=== PATIENT | female | born 2000 | race Caucasian/White ===

== ENCOUNTER → 2022-09-09 16:28 | Outpatient (CLI) | payer OTHER, SELFPAY ==
--- NOTE | 2022-09-09 | DI.MRI.S_ITS ---
PROCEDURE: MR KNEE RT WO CON INDICATIONS: PAIN IN RIGHT KNEE TECHNIQUE: Noncontrast sagittal PD fast spin echo and T2 fast spin echo with fat saturation, sagittal 3-D FLASH with fat saturation; coronal T1 spin echo and PD fast spin echo with fat saturation, and axial PD fast spin echo with fat saturation through the knee. COMPARISON: None. FINDINGS: Image quality: Excellent. Menisci: The medial and lateral menisci demonstrate normal morphology and internal signal. The meniscal root ligaments appear intact. Cruciate ligaments: The anterior and posterior cruciate ligaments appear intact. Medial structures: The medial collateral ligament appears intact. Visualized portions of the pes anserinus tendons appear normal. No abnormal bursal fluid. Lateral structures: The lateral collateral ligament, long and short heads of the biceps femoris tendon appear intact. The popliteus tendon appears normal. Iliotibial band appears normal. Anterior structures: The quadriceps and patellar tendons appear intact. Patellar alignment is normal. No femoral trochlear dysplasia or ventral trochlear prominence. No edema in the infrapatellar fat pad. Bones and cartilage: No bone marrow contusions or fractures. Articular cartilage fibrillation overlies the lateral patellar facet. Mild articular cartilage loss diffusely overlies the weight-bearing aspects of the medial femoral condyle and medial tibial plateau. Joint space: There is physiologic knee joint fluid. No Edwards's cyst. Normal appearing synovial plicae are incidentally noted. IMPRESSION: 1. No internal derangement. 2. Mild lateral patellofemoral compartment articular cartilage loss. Dictated by: Yue Mata M.D. on 09/10/2022 at 9:46 Approved by: Yue Mata M.D. on 09/10/2022 at 9:52
== END ==
PROVIDERS: Referring Provider Student in an Organized Health Care Education/Training Program; Visit Provider Student in an Organized Health Care Education/Training Program
DX: M25.561 Pain in right knee (principal); F90.9 Attention-deficit hyperactivity disorder, unspecified type
CPT/HCPCS: 73721

== ENCOUNTER → 2022-10-16 14:39 | Outpatient (CLI) | payer OTHER, SELFPAY ==
[2022-10-16 15:35] LABS: Add Manual Diff / Slide Review NO; Basophils Absolute Auto 100 /uL (0-100); Basophils Percent Auto 0.6 % (0-2); Eosinophils Absolute Auto 100 /uL (0-450); Eosinophils Percent Auto 0.7 % (2-4); Hematocrit 34.1 % (36-46); Hemoglobin 11.9 g/dL (12.0-16.0); Lymphocytes Absolute Auto 2300 /uL (1100-4500); Lymphocytes Percent Auto 27.2 % (25-40); Mean Corpuscular HGB Conc 34.8 % (30-36); Mean Corpuscular Hemoglobin 26.6 PG (26-34); Mean Corpuscular Volume 76.4 fL (80-100); Monocytes Absolute Auto 600 /uL (0-900); Monocytes Percent Auto 7.2 % (3-14); Neutrophils Absolute Auto 5300 /uL (1500-7000); Neutrophils Percent Auto 64.3 % (50-75); Platelet Count 262 X10^3/uL (150-400); Red Blood Cell Count 4.47 X10^6/uL (4.0-5.2); White Blood Cell Count 8.3 X10^3/uL (4.5-11.0)
[2022-10-16 16:09] LABS: Free T3, Triiodothyronine Free 4.35 pg/mL (2.77-5.27); Free T4, Direct Thyroxine 1.06 ng/dL (0.78-2.19)
[2022-10-16 16:23] LABS: Thyroid Stimulating Hormone 1.96 uIU/mL (0.47-4.68)
[2022-10-17 07:03] LABS: RPR Screen Non Reactive (Non Reactive); x Labcorp Estim. Avg Glu (eAG) 94 mg/dL (.); x Labcorp Hemoglobin A1c 4.9 % (4.8-5.6)
[2022-10-17 08:09] LABS: Varicella IgG Antibody 1527 index (Immune >165)
[2022-10-19 14:06] LABS: Hepatitis B Surface Antigen NEGATIVE s/c (NEGATIVE); Rubella Antibody IgG 26.2 IU/mL (>15)
[2022-10-19 14:15] LABS: HIV 1 & 2 Ab/Ag 4th Gen Combo NEGATIVE (NEGATIVE)
[2022-10-19 15:01] LABS: Hep C Virus Ab w/Reflex Quant NEGATIVE s/c (NEGATIVE)
== END ==
PROVIDERS: Referring Provider Specialist; Visit Provider Specialist
DX: Z34.00 Encounter for supervision of normal first pregnancy, unspecified trimester (principal); R63.5 Abnormal weight gain
CPT/HCPCS: 36415; 80055; 83036; 84439; 84443; 84481; 86787; 86803; 86850; 86900; 86901; 87389

== ENCOUNTER 2022-11-04 08:59 | Emergency (ER) | payer OTHER, SELFPAY ==
[2022-11-04 09:08] VITALS: BP 124/84; PULSE 88; RESP 14; TEMP 35.9; O2SAT 99; BMI 41.1
--- NOTE | 2022-11-04 09:22 | DI.US.S_ITS ---
PROCEDURE: US OB <= 14 WEEKS FETUS INDICATIONS: PAIN OUTSIDE/PRIOR DATING DATA: Last menstrual period (LMP): 08/15/2022. LMP-based estimated date of delivery (BRIANNE): 05/22/2023. First dating scan (date and location): 10/16/2022. Estimated date of delivery (BRIANNE) from first dating scan: 06/01/23. The calculations are made using the ultrasound BRIANNE of 06/01/2023. TECHNIQUE: Real-time scanning was performed of the fetus and maternal pelvic organs, with image documentation. Endovaginal scanning was also performed to better visualize the fetus and maternal ovaries. COMPARISON: [facility], US, US OB <= 14 WEEKS FETUS, 10/16/2022, 14:14. FINDINGS: Embryo: [place]-rump length measures 3.3 cm, 10 weeks 1 day. A yolk sac is noted. Heart rate: 171 Maternal organs: Ovaries not well seen. Small perigestational bleed measuring 1.8 x 0.4 x 0.3 cm. IMPRESSION: 1. Living 1st trimester intrauterine with crown-rump length and heartbeat. 2. Very small perigestational bleed. We strive to produce accurate, complete, and clear reports of imaging services. To assist us in improving patient care, this report was composed using standard report templates and voice recognition software. Therefore, it may contain abnormal punctuation, insertions and/or omissions. Occasional wrong-word or sound-alike substitutions may occur. Though we review the report and make efforts to correct it, we do recommend that the report be read carefully in proper context to recognize any text inaccuracies. Dictated by: Chevy Mike M.D. on 11/04/2022 at 10:25 Approved by: Chevy Mike M.D. on 11/04/2022 at 10:29
--- NOTE | 2022-11-04 09:26 | ED_ITS ---
HPI - Abdominal Pain General Chief Complaint: Abdominal Pain Stated Complaint: Vomiting blood, stomach pain Time Seen by Provider: 11/04/22 09:13 Source: patient Mode of arrival: Ambulatory History of Present Illness HPI narrative: Patient 22-year-old female presenting today with nausea vomiting and abdominal pain. He reports that she is been nauseous and vomiting daily she is got Zofran at 5 it does not really help. She can sometimes keep prove found but definitely can not keep him male down. She vomited today and there was a small amount of blood in her vomit. She felt pain go all the way down to her abdomen and is now having some mild discomfort in her lower pelvic region. No fever or chills. Related Data Home Medications Medication Instructions Recorded Confirmed vitamin-ferrous sulfate tab PO 10/12/22 10/16/22 27 mg iron-folic acid 0.8 mg tablet Previous Rx's Medication Instructions Recorded ondansetron 4 mg disintegrating 4 mg PO Q6H PRN nausea and 10/27/22 tablet vomiting #20 tabs metoclopramide HCl 10 mg tablet 10 mg PO Q6H PRN nausea and 11/04/22 (Reglan) vomiting #20 tabs Allergies Allergy/AdvReac Type Severity Reaction Status Date / Time oxybutynin Allergy Mild Rash Verified 11/04/22 09:08 Review of Systems Review of Systems ROS Unobtainable: All systems reviewed & are unremarkable except as noted in HPI and below Patient History Medical History ADHD Migraine without aura Recurrent UTI Surgical History [place] teeth extracted Family History Grandfather Heart disease Hypertension Liver failure Grandmother Cancer Heart disease Hypertension Obesity Grandfather Melanoma Grandmother No problems noted. 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 [employer] ) current occupational exposures/hazards: No special dot needs: No travel history: recent (domestic only) seatbelt use: always water heater temp set < 120 deg: Yes working smoke detector in home: Yes fire extinguisher in home: Yes carbon monox detector in home: Yes firearms in home: No do you feel safe at home: Yes Smoking Status: Never smoker second hand exposure: No alcohol intake: former (rarely when not ) substance use type: does not use during the past year weight has: increased > 10 lbs well-balanced diet: daily or most days daily servings fruits/ve or more times/day caffeine: No Type(s) of exercise: walking and weight lifting frequency: 3-4 times per week Smoking Status: Never smoker alcohol intake frequency: holidays/special occasions only Substance Use Type: does not use Exam Initial Vital Signs Initial Vital Signs: Vital Signs Temperature 96.7 F L 11/04/22 09:08 Pulse Rate 88 11/04/22 09:08 Respiratory Rate 14 11/04/22 09:08 Blood Pressure 124/84 11/04/22 09:08 Pulse Oximetry 99 11/04/22 09:08 Oxygen Delivery Method Room Air 11/04/22 09:08 GENERAL: Alert pleasant well 22-year-old female and in no acute distress. Appears comfortable HEENT: Head atraumatic,EOMI, pupils reactive, face symmetric, moist mucous membranes CARDIOVASCULAR: Regular rate and rhythm without murmurs, rubs or gallops. RESPIRATORY: Breath sounds equal bilaterally, no wheezes rales or rhonchi. ABDOMEN: Soft, minimal lower abdominal pain no guarding no rebound : No CVA tenderness EXTREMITIES: Normal range of motion, no clubbing or edema. Neurovascularly intact NEUROLOGICAL: Alert and oriented x4. SKIN: Warm, dry, no laceration, no petechiae, no rashes or lesions. Course Orders Ordered: Discontinued Medications Sodium Chloride (Normal Saline 0.9%) 1,000 mls @ 1,000 mls/hr IV BOLUS ONE Stop: 11/04/22 10:12 Last Infusion: 11/04/22 11:35 Dose: 0 mls/hr Documented By: Admin: 11/04/22 10:06 Dose: 1,000 mls/hr Documented By: ROLANDO Metoclopramide HCl (Metoclopramide 10 Mg/2 Ml Inj) 10 mg IV NOW ONE Stop: 11/04/22 10:34 Last Admin: 11/04/22 10:43 Dose: 10 mg Documented By: ROLANDO Vital Signs Vital signs: Vital Signs - 8 hr 11/04/22 09:08 Temperature 96.7 F L Pulse Rate 88 Respiratory Rate 14 Blood Pressure 124/84 Pulse Oximetry 99 Oxygen Delivery Method Room Air MDM - Abdominal Pain Lab Data 11/04/22 09:30 11/04/22 09:30 Labs: Lab Results 11/04/22 11/04/22 Range/Units 09:30 09:30 WBC 8.3 (4.5-11.0) X10^3/uL RBC 4.89 (4.0-5.2) X10^6/uL Hgb 12.8 (12.0-16.0) g/dL Hct 36.7 (36-46) % MCV 75.0 L (80-100) fL MCH 26.2 (26-34) PG MCHC 34.9 (30-36) % RDW 13.5 (11.6-14.8) % Plt Count 255 (150-400) X10^3/uL Neut % (Auto) 65.5 (50-75) % Lymph % (Auto) 27.0 (25-40) % [place] % (Auto) 6.7 (3-14) % Eos % (Auto) 0.4 L (2-4) % Baso % (Auto) 0.4 (0-2) % Neut # (Auto) 5400 (7728-1244) /uL Lymph # (Auto) 2200 (9140-2501) /uL [place] # (Auto) 600 (0-900) /uL Eos # (Auto) 0 (0-450) /uL Baso # (Auto) 0 (0-100) /uL Sodium 135 L (137-145) mmol/L Potassium 3.9 (3.4-5.1) mmol/L Chloride 101 (98-107) mmol/L Carbon Dioxide 27 (22-32) mmol/L BUN 4 L (7-17) mg/dL Creatinine 0.51 L (0.52-1.04) mg/dL Estimated GFR > 60 (>60) mL/min BUN/Creatinine Ratio 7.8 (6-22) Glucose 93 (70-100) mg/dL Calcium 9.2 (8.4-10.2) mg/dL Total Bilirubin 0.3 (0.2-1.3) mg/dL AST 22 (14-36) IU/L ALT 23 (<35) IU/L Alkaline Phosphatase 67 (38-126) U/L Total Protein 7.0 (6.3-8.2) g/dL Albumin 4.0 (3.5-5.0) g/dL Globulin 3.0 (1.7-4.1) g/dL Albumin/Globulin Ratio 1.3 (1.0-2.8) Point of care testing: Point of Care Testing Test Results Negative Urine Dip Bedside Urine Glucose Negative Bedside Urine Bilirubin - Negative Bedside Urine Ketone - Negative Urine Specific [place] 1.005 Bedside Urine Occult Blood - Negative Bedside Urine pH 7.0 Bedside Urine Protein - Negative Bedside Urine Urobilinogen - Negative Bedside Urine Nitrite - Negative Bedside Urine Leukocytes - Negative Esterase Imaging Data US - OB: Radiologist's Impression: PROCEDURE:? US OB <= 14 WEEKS FETUS ? INDICATIONS:? PAIN ? OUTSIDE/PRIOR DATING DATA:? Last menstrual period (LMP):? 08/15/2022.? LMP-based estimated date of delivery (BRIANNE):? 05/22/2023.? First dating scan (date and location):? 10/16/2022.? Estimated date of delivery (BRIANNE) from first dating scan:? 06/01/23. The calculations are made using the ultrasound BRIANNE of 06/01/2023. ? TECHNIQUE:? Real-time scanning was performed of the fetus and maternal pelvic organs, with image documentation.? Endovaginal scanning was also performed to better visualize the fetus and maternal ovaries.? ? COMPARISON:? [facility], , US OB <= 14 WEEKS FETUS, 10/16/2022, 14:14. ? FINDINGS:? ? Embryo:? [place]-rump length measures 3.3 cm, 10 weeks 1 day.? A yolk sac is noted. Heart rate:? 171 ? Maternal organs:? Ovaries not well seen. ? Small perigestational bleed measuring 1.8 x 0.4 x 0.3 cm. ? ? IMPRESSION:? ? 1. Living 1st trimester intrauterine with crown-rump length and heartbeat. ? 2. Very small perigestational bleed.? ? We strive to produce accurate, complete, and clear reports of imaging services. To assist us in improving patient care, this report was composed using standard report templates and voice recognition software. Therefore, it may contain abnormal punctuation, insertions and/or omissions. Occasional wrong-word or sound-alike substitutions may occur. Though we review the report and make efforts to correct it, we do recommend that the report be read carefully in proper context to recognize any text inaccuracies. ? ? Dictated by: Chevy Mike M.D. on 11/04/2022 at 10:25 MDM Narrative Medical decision making narrative: Patient 22-year-old female currently 10 weeks confirmed by ultr asound today presents today with vomiting. She did have hematemesis. No concern for Debbie-Rivas or for his syndrome. She was having some lower abdominal cramping but minimal pain ultrasound is reassuring. She is tolerating fluids blood work does not show any significant clinical abnormality no evidence of a UTI. She reports not having relief with Zofran at home will try Reglan. At this time no need for any further workup or evaluation. Discharge Plan Departure Patient Disposition: Home Clinical Impression: Vomiting affecting Instructions: DI for Hyperemesis Gravidarum Activity Restrictions/Additional Instructions: *You have been diagnosed with vomiting with *What to do: At this time increase fluids as tolerated recommend small frequent meals *Continue to take medications as directed Reglan 10 mg every 6 hours if needed for nausea vomiting--> SENT TO [facility] *Follow up with your primary care provider in 2-3 days or call [phone] *Return to ER if you should have persistent vomiting dizziness lightheadedness or any new, worsening or concerning symptoms Prescriptions: New metoclopramide HCl [Reglan] 10 mg tablet 10 mg PO Q6H PRN (Reason: nausea and vomiting) Qty: 20 0RF No Action ondansetron 4 mg tablet,disintegrating 4 mg PO Q6H PRN (Reason: nausea and vomiting) Qty: 20 0RF vit-ferrous sulfat-FA 27 mg iron- 0.8 mg tablet PO Referrals: Miscellaneous,Doctor, MD [Primary Care Provider] - Stand Alone Forms: Patient Portal/API
[2022-11-04 09:39] LABS: Add Manual Diff / Slide Review NO; Basophils Absolute Auto 0 /uL (0-100); Basophils Percent Auto 0.4 % (0-2); Eosinophils Absolute Auto 0 /uL (0-450); Eosinophils Percent Auto 0.4 % (2-4); Hematocrit 36.7 % (36-46); Hemoglobin 12.8 g/dL (12.0-16.0); Lymphocytes Absolute Auto 2200 /uL (1100-4500); Mean Corpuscular HGB Conc 34.9 % (30-36); Mean Corpuscular Hemoglobin 26.2 PG (26-34); Monocytes Absolute Auto 600 /uL (0-900); Monocytes Percent Auto 6.7 % (3-14); Neutrophils Absolute Auto 5400 /uL (1500-7000); Neutrophils Percent Auto 65.5 % (50-75); Platelet Count 255 X10^3/uL (150-400); Red Blood Cell Count 4.89 X10^6/uL (4.0-5.2); Red Cell Distribution Width 13.5 % (11.6-14.8); White Blood Cell Count 8.3 X10^3/uL (4.5-11.0)
[2022-11-04 09:50] LABS: Alanine Aminotransferase 23 IU/L (<35); Albumin Globulin Ratio 1.3 (1.0-2.8); Alkaline Phosphatase 67 U/L (38-126); Aspartate Aminotransferase 22 IU/L (14-36); BUN Creatinine Ratio 7.8 (6-22); Bilirubin Total 0.3 mg/dL (0.2-1.3); Blood Urea Nitrogen 4 mg/dL (7-17); Calcium 9.2 mg/dL (8.4-10.2); Carbon Dioxide 27 mmol/L (22-32); Chloride 101 mmol/L (98-107); Estimated Glomerular Filt Rate > 60 mL/min (>60); Glucose 93 mg/dL (70-100); HEMOLYSIS < 15 (0-50); Potassium 3.9 mmol/L (3.4-5.1); Sodium 135 mmol/L (137-145)
[2022-11-04] MEDS: SODIUM CHLORIDE 0.9% 1,000 ML 1000 ML IV (10:06)
[2022-11-04] MEDS: METOCLOPRAMIDE 10 MG/2 ML INJ IV (10:43)
[2022-11-04 10:46] VITALS: BP 116/67; PULSE 79; O2SAT 98
[2022-11-04 11:00] VITALS: PULSE 86; O2SAT 97
--- NOTE | 2022-11-04 11:35 | PC.NURSE ---
Patient did not complete fluid bolus, potentially due to arm being intermittently bent during infusion. Provider aware, ok to DC as she is drinking water and not vomiting. I encouraged her to drink more fluids upon DC.
== END 2022-11-04 11:39 | disposition home or self-care (01) ==
PROVIDERS: Emergency Provider Emergency Medicine
DX: O21.9 Vomiting of pregnancy, unspecified (principal); Z3A.10 10 weeks gestation of pregnancy
CPT/HCPCS: 36415; 76801; 76817; 80053; 81003; 81025; 85025; 96361; 96374; 99284; J2765

== ENCOUNTER → 2022-11-13 14:21 | Outpatient (CLI) | payer OTHER, SELFPAY | PROVIDERS: Referring Provider Obstetrics & Gynecology; Visit Provider Obstetrics & Gynecology | DX: Z34.01 Encounter for supervision of normal first pregnancy, first trimester (principal) | CPT/HCPCS: 36415 ==

== ENCOUNTER → 2022-12-14 10:25 | Outpatient (CLI) | payer OTHER, SELFPAY ==
[2022-12-16 23:24] LABS: AFP Value 20.1 ng/mL (.); Gest Age on Col Date 17.9 weeks (.); Insulin Dep Diabetes No (.); OSBR Risk 1IN 10000 (.); Results Report (.); Test Results *Screen Negative* (.)
[2022-12-17 07:20] LABS: PDF SCANNED
== END ==
PROVIDERS: Referring Provider Physician Assistant Medical; Visit Provider Physician Assistant Medical
DX: Z34.02 Encounter for supervision of normal first pregnancy, second trimester (principal); Z3A.15 15 weeks gestation of pregnancy
CPT/HCPCS: 36415; 82105

== ENCOUNTER 2022-12-31 09:32 | Emergency (ER) | payer OTHER, SELFPAY ==
[2022-12-31] VITALS (8 sets, daily range): BP systolic 110–140; BP diastolic 55–82; PULSE 91–110; RESP 18; TEMP 36.9; O2SAT 96–99; BMI 42.0
--- NOTE | 2022-12-31 10:01 | ED_ITS ---
HPI - Dizziness General Chief Complaint: Headache Stated Complaint: D T-6 migraine/drained- 18wks preg Time Seen by Provider: 12/31/22 09:36 Source: patient Mode of arrival: Ambulatory History of Present Illness HPI Narrative: 22yoF at 18wks gestational age presents for 1 wk of lightheadedness and migraines. Patient has hx of migraines in childhood. Patient states that her primary concern is that she feels drained, fatigued, and lightheaded, this lightheadedness subsequently leads to her migraines. She is been taking Tylenol and drinking fluids at home without improvement in her symptoms. She called her OBGYN, who referred her to the ED. Patient denies vertigo, vision changes, numbness, weakness. Related Data Home Medications Medication Instructions Recorded Confirmed vitamin-ferrous sulfate tab PO 10/12/22 12/14/22 27 mg iron-folic acid 0.8 mg tablet Previous Rx's Medication Instructions Recorded ondansetron 4 mg disintegrating 4 mg PO Q6H PRN nausea and 10/27/22 tablet vomiting #20 tabs metoclopramide HCl 10 mg tablet 10 mg PO Q6H PRN nausea and 11/04/22 (Reglan) vomiting #20 tabs ryartraglw-ivjgbkatcqwqq-nxufgswh 1 cap PO TID PRN pain #10 caps 12/31/22 50 mg-300 mg-40 mg capsule (Fioricet) Allergies Allergy/AdvReac Type Severity Reaction Status Date / Time oxybutynin Allergy Mild Rash Verified 12/14/22 09:55 Review of Systems Review of Systems Narrative: CONSTITUTIONAL-reports: Fatigue Denies: fever, chills HEENT- Denies: sore throat, nosebleed, vision changes RESPIRATORY- Denies: shortness of breath, cough, wheezing CARDIAC- Denies: chest pain, edema, orthopnea GI- Denies: abdominal pain, nausea, vomiting, constipation, diarrhea - Denies: frequency, dysuria, hematuria, flank pain MSK- Denies: extremity pain, extremity swelling, joint pain, joint swelling SKIN- Denies: rash, itching, burn, swelling NEUROLOGICAL-reports: Headache Denies: numbness, weakness, dizziness PSYCHIATRIC- Denies: anxiety, depression, suicidal ideation, homicidal ideation Patient History Medical History ADHD Migraine without aura Recurrent UTI Surgical History [place] teeth extracted Family History Grandfather Heart disease Hypertension Liver failure Grandmother Cancer Heart disease Hypertension Obesity Grandfather Melanoma Grandmother No problems noted. 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 [employer] ) current occupational exposures/hazards: No special dot needs: No travel history: recent (domestic only) seatbelt use: always water heater temp set < 120 deg: Yes working smoke detector in home: Yes fire extinguisher in home: Yes carbon monox detector in home: Yes firearms in home: No do you feel safe at home: Yes Smoking Status: Never smoker second hand exposure: No alcohol intake: former (rarely when not ) substance use type: does not use during the past year weight has: increased > 10 lbs well-balanced diet: daily or most days daily servings fruits/ve or more times/day caffeine: No Type(s) of exercise: walking and weight lifting frequency: 3-4 times per week Smoking Status: Never smoker alcohol intake frequency: holidays/special occasions only Substance Use Type: does not use Exam Initial Vital Signs Initial Vital Signs: Vital Signs Blood Pressure 140/70 12/31/22 09:43 Const: Awake, alert, no acute distress, nontoxic appearing, obese Eyes: PERRL, EOMI, conjunctiva normal ENT: Atraumatic, dentition normal, mucous membranes moist Cardiac: regular rate, regular rhythm RESP: unlabored, clear bilaterally, no wheezing GI: Atraumatic, soft, nontender, nondistended, no rebound, no guarding MSK: Atraumatic, full range of motion, pulses equal Skin: Warm, Dry, intact, no rashes Neuro: AO x3, CN II-XII grossly intact, moves all extremities Psych: affect normal, mood normal, not suicidal, not homicidal Course Course Course Narrative: Well appearing patient with headache x1 week. Neurovascularly intact, no focal neurologic deficits. Patient states primary concern is her fatigue, which she states causes her migraines to occur. Orders Ordered: ED Orders 12/31/22 09:59 CBC Auto Diff [Complete Blood Count AUTO DIFF] Stat CMP [Comprehensive Metabolic Panel] Stat TSH [Thyroid Stimulating Hormone] Stat 12/31/22 11:18 EKG-12 Lead Stat Discontinued Medications Diphenhydramine HCl (Diphenhydramine 50 Mg/Ml Vial) 50 mg IV NOW ONE Stop: 12/31/22 09:49 Last Admin: 12/31/22 10:13 Dose: 50 mg Documented By: APRYL Sodium Chloride (Normal Saline 0.9%) 1,000 mls @ 1,000 mls/hr IV BOLUS ONE Stop: 12/31/22 10:47 Last Infusion: 12/31/22 11:03 Dose: Infused Documented By: Admin: 12/31/22 10:13 Dose: 1,000 mls/hr Documented By: APRYL Metoclopramide HCl (Metoclopramide 10 Mg/2 Ml Inj) 10 mg IV NOW ONE Stop: 12/31/22 09:49 Last Admin: 12/31/22 10:13 Dose: 10 mg Documented By: APRYL Vital Signs Vital signs: Vital Signs - 8 hr 12/31/22 09:43 12/31/22 09:44 12/31/22 09:51 Temperature 98.4 F Pulse Rate 110 H 95 H Respiratory Rate 18 Blood Pressure 140/70 140/70 Pulse Oximetry 97 98 Oxygen Delivery Method Room Air 12/31/22 10:00 12/31/22 10:18 12/31/22 10:18 Temperature Pulse Rate 93 H 101 H Respiratory Rate Blood Pressure 131/82 Pulse Oximetry 96 98 Oxygen Delivery Method 12/31/22 10:32 12/31/22 11:00 12/31/22 11:00 Temperature Pulse Rate 104 H 91 H Respiratory Rate Blood Pressure 116/55 L Pulse Oximetry 98 96 Oxygen Delivery Method 12/31/22 11:37 Temperature Pulse Rate 100 H Respiratory Rate 18 Blood Pressure 110/65 Pulse Oximetry 99 Oxygen Delivery Method Room Air MDM - Dizziness Lab Data 12/31/22 09:59 12/31/22 09:59 Labs: Lab Results 12/31/22 Range/Units 09:59 WBC 8.6 (4.5-11.0) X10^3/uL RBC 4.76 (4.0-5.2) X10^6/uL Hgb 12.4 (12.0-16.0) g/dL Hct 35.3 L (36-46) % MCV 74.1 L (80-100) fL MCH 26.1 (26-34) PG MCHC 35.2 (30-36) % RDW 14.1 (11.6-14.8) % Plt Count 243 (150-400) X10^3/uL Neut % (Auto) 71.1 (50-75) % Lymph % (Auto) 22.2 L (25-40) % [place] % (Auto) 6.1 (3-14) % Eos % (Auto) 0.2 L (2-4) % Baso % (Auto) 0.4 (0-2) % Neut # (Auto) 6100 (1437-3785) /uL Lymph # (Auto) 1900 (0883-4813) /uL [place] # (Auto) 500 (0-900) /uL Eos # (Auto) 0 (0-450) /uL Baso # (Auto) 0 (0-100) /uL Sodium 134 L (137-145) mmol/L Potassium 3.7 (3.4-5.1) mmol/L Chloride 103 (98-107) mmol/L Carbon Dioxide 24 (22-32) mmol/L BUN 4 L (7-17) mg/dL Creatinine 0.44 L (0.52-1.04) mg/dL Estimated GFR > 60 (>60) mL/min BUN/Creatinine Ratio 9.1 (6-22) Glucose 103 H (70-100) mg/dL Calcium 9.5 (8.4-10.2) mg/dL Total Bilirubin 0.2 (0.2-1.3) mg/dL AST 34 (14-36) IU/L ALT 57 H (<35) IU/L Alkaline Phosphatase 63 (38-126) U/L Total Protein 6.4 (6.3-8.2) g/dL Albumin 3.6 (3.5-5.0) g/dL Globulin 2.8 (1.7-4.1) g/dL Albumin/Globulin Ratio 1.3 (1.0-2.8) TSH 1.37 (0.47-4.68) uIU/mL Urine Dip Bedside Urine Glucose Negative Bedside Urine Bilirubin - Negative Bedside Urine Ketone - Negative Urine Specific [place] 1.010 Bedside Urine Occult Blood - Negative Bedside Urine pH 6.5 Bedside Urine Protein - Negative Bedside Urine Urobilinogen - Negative Bedside Urine Nitrite - Negative Bedside Urine Leukocytes - Negative Esterase ECG Data Interpretation: Normal sinus rhythm, rate 90 beats per minute, normal axis, no ST T wave changes, normal PA intervals, no STEMI MDM Narrative Medical decision making narrative: Well-appearing patient with lightheadedness and fatigue in early . Hemodynamically stable, neurovascularly intact. Patient states her primary concern is fatigue and lightheadedness that she feels that she states exacerbates her migraine. Patient was given migraine cocktail with resolution of headache. Laboratory work is unremarkable, no electrolyte abnormalities. Urinalysis showed no signs of infection. EKG sinus rhythm without concerning findings. Patient advised of all lab and imaging findings, I recommended close follow up with OBGYN. Patient already has scheduled follow up with her OBGYN. We will give patient small amount of Fioricet for breakthrough headaches if needed. ED return precautions discussed at bedside. Patient expressed understanding of the plan and is in agreement at this time. All questions answered at the time of discharge. Discharge Plan Departure Patient Disposition: Home Clinical Impression: Dizziness Headache Qualifiers: Headache chronicity pattern: acute headache Intractability: not intractable Instructions: DI for Migraine Prescriptions: New eoskrhjogy-vmistgdmeppdw-wrna [Fioricet] 50-300-40 mg capsule 1 cap PO TID PRN (Reason: pain) Qty: 10 0RF No Action ondansetron 4 mg tablet,disintegrating 4 mg PO Q6H PRN (Reason: nausea and vomiting) Qty: 20 0RF vit-ferrous sulfat-FA 27 mg iron- 0.8 mg tablet PO metoclopramide HCl [Reglan] 10 mg tablet 10 mg PO Q6H PRN (Reason: nausea and vomiting) Qty: 20 0RF Referrals: Rashid Quintanilla MD [Primary Care Provider] - Stand Alone Forms: Patient Portal/API
[2022-12-31 10:09] LABS: Add Manual Diff / Slide Review NO; Basophils Absolute Auto 0 /uL (0-100); Basophils Percent Auto 0.4 % (0-2); Eosinophils Absolute Auto 0 /uL (0-450); Eosinophils Percent Auto 0.2 % (2-4); Hematocrit 35.3 % (36-46); Hemoglobin 12.4 g/dL (12.0-16.0); Lymphocytes Absolute Auto 1900 /uL (1100-4500); Lymphocytes Percent Auto 22.2 % (25-40); Mean Corpuscular HGB Conc 35.2 % (30-36); Mean Corpuscular Hemoglobin 26.1 PG (26-34); Mean Corpuscular Volume 74.1 fL (80-100); Monocytes Absolute Auto 500 /uL (0-900); Monocytes Percent Auto 6.1 % (3-14); Neutrophils Absolute Auto 6100 /uL (1500-7000); Neutrophils Percent Auto 71.1 % (50-75); Platelet Count 243 X10^3/uL (150-400); Red Blood Cell Count 4.76 X10^6/uL (4.0-5.2); Red Cell Distribution Width 14.1 % (11.6-14.8); White Blood Cell Count 8.6 X10^3/uL (4.5-11.0)
[2022-12-31] MEDS: SODIUM CHLORIDE 0.9% 1,000 ML 1000 ML IV (10:13)
[2022-12-31] MEDS: diphenhydrAMINE 50 MG/ML VIAL IV (10:13)
[2022-12-31] MEDS: METOCLOPRAMIDE 10 MG/2 ML INJ IV (10:13)
[2022-12-31 10:24] LABS: Alanine Aminotransferase 57 IU/L (<35); Albumin 3.6 g/dL (3.5-5.0); Albumin Globulin Ratio 1.3 (1.0-2.8); Alkaline Phosphatase 63 U/L (38-126); Aspartate Aminotransferase 34 IU/L (14-36); BUN Creatinine Ratio 9.1 (6-22); Bilirubin Total 0.2 mg/dL (0.2-1.3); Blood Urea Nitrogen 4 mg/dL (7-17); Calcium 9.5 mg/dL (8.4-10.2); Carbon Dioxide 24 mmol/L (22-32); Chloride 103 mmol/L (98-107); Estimated Glomerular Filt Rate > 60 mL/min (>60); Globulin 2.8 g/dL (1.7-4.1); Glucose 103 mg/dL (70-100); HEMOLYSIS < 15 (0-50); Potassium 3.7 mmol/L (3.4-5.1); Sodium 134 mmol/L (137-145); Total Protein 6.4 g/dL (6.3-8.2)
[2022-12-31 10:53] LABS: Thyroid Stimulating Hormone 1.37 uIU/mL (0.47-4.68)
== END 2022-12-31 11:38 | disposition home or self-care (01) ==
PROVIDERS: Emergency Provider Emergency Medicine; PCP Obstetrics & Gynecology
DX: O26.92 Pregnancy related conditions, unspecified, second trimester (principal); Z3A.18 18 weeks gestation of pregnancy; R51.9 Headache, unspecified; R42 Dizziness and giddiness
CPT/HCPCS: 80053; 81003; 84443; 85025; 93005; 96361; 96374; 96375; 99283; 99284; J1200; J2765

== ENCOUNTER → 2023-01-05 14:06 | Outpatient (CLI) | payer OTHER, SELFPAY ==
--- NOTE | 2023-01-05 14:07 | DI.US.S_ITS ---
PROCEDURE: US OB >= 14 WEEKS FETUS INDICATIONS: ANATOMY OUTSIDE/PRIOR DATING DATA: Last menstrual period (LMP): 08/15/2022 LMP-based estimated date of delivery (BRIANNE): 05/22/2023 First dating scan (date and location): 10/16/2022 Estimated date of delivery (BRIANNE) from first dating scan: 06/01/2023 The calculations are made using the ultrasound BRIANNE of 06/01/2023 TECHNIQUE: Real-time scanning was performed of the fetus, with image documentation and biometric measurements. Endovaginal scanning: Not performed COMPARISON: [facility], OB <= 14 WEEKS FETUS, 11/04/2022, 9:37. FINDINGS: General: A single living intrauterine gestation is present. Presentation: Vertex Placenta: Placental position is posterior. The lower placental margin is approximately 0.8 cm from the internal cervical os. Amniotic fluid index: 14.6 cm, normal range is 5-24 cm. Single deepest vertical pocket is 4.6 cm. heart rate: 143 beats per minute. Maternal cervical canal: 5.3 cm long. Normal lower limit is 2.5 cm. biometrics: Biparietal diameter: 4.3 cm, 19 weeks 1 day Head circumference: 16.9 cm, 19 weeks 4 days Abdominal circumference: 15.8 cm, 21 weeks 0 days Femur length: 3.0 cm, 19 weeks 2 days Clinically estimated gestational age: 19 weeks 0 days Composite gestational age from present scan: 19 weeks 5 days Estimated weight and percentile: 331 g, 95th percentile Anatomic survey: Neuro: Ventricles are non-dilated at less than 10 mm. Cisterna magna is normal at 3-11 mm. Cerebellum is normal in size and morphology. Nuchal skin fold: Normal at less than 6 mm between 14-21 weeks gestational age. Face: Nose and lips, facial profile are normal. Spine: No evidence for spina bifida. Heart: 4-chambered heart is present, with normal ventricular outflow tracts. Diaphragm: Diaphragm is intact. Stomach: Left-sided stomach is present. Kidneys: No hydronephrosis. Normal is less than 5 mm in 2nd trimester, less than 7 mm in 3rd trimester. Cord: 3-vessel cord has orthotopic insertion. Bladder: Normal in size. Extremities: All 4 extremities identified. IMPRESSION: 1. Single live intrauterine . 2. Estimated weight is at the 95th percentile for gestational age. Recommend correlation and follow-up to exclude macrosomia. 3. Low lying placenta, with inferior margin 0.8 cm from the internal cervical os. 4. anatomic survey is otherwise within normal limits. We strive to produce accurate, complete, and clear reports of imaging services. To assist us in improving patient care, this report was composed using standard report templates and voice recognition software. Therefore, it may contain abnormal punctuation, insertions and/or omissions. Occasional wrong-word or sound-alike substitutions may occur. Though we review the report and make efforts to correct it, we do recommend that the report be read carefully in proper context to recognize any text inaccuracies. Approved by: Shawn Galvan M.D. on 01/05/2023 at 16:47
== END ==
PROVIDERS: PCP Obstetrics & Gynecology; Referring Provider Physician Assistant Medical; Visit Provider Physician Assistant Medical
DX: Z34.02 Encounter for supervision of normal first pregnancy, second trimester (principal); Z3A.15 15 weeks gestation of pregnancy
CPT/HCPCS: 76811

== ENCOUNTER → 2023-01-20 12:27 | Outpatient (CLI) | payer OTHER, SELFPAY ==
--- NOTE | 2023-01-20 12:28 | DI.US.S_ITS ---
PROCEDURE: US OB LIMITED INDICATIONS: PELVIC PAIN IN VAGINAL AREA. EVALUATE CERVIX/OVARIES. OUTSIDE/PRIOR DATING DATA: Last menstrual period (LMP): 08/15/2022. LMP-based estimated date of delivery (BRIANNE): 05/22/2023. First dating scan (date and location): 10/16/2022. Estimated date of delivery (BRIANNE) from first dating scan: 06/01/2023. The calculations are made using the ultrasound BRIANNE of 06/01/2023. TECHNIQUE: Real-time scanning was performed of the fetus, with image documentation and biometric measurements. COMPARISON: [facility], , US OB >= 14 WEEKS FETUS, 01/05/2023, 14:15. FINDINGS: General: A single living intrauterine gestation is present. Presentation: Vertex. Placenta: Placental position is posterior , without previa. Amniotic fluid index: 16.9 cm, normal range is 5-24 cm. Single deepest vertical pocket is 4.6 cm. heart rate: 144 beats per minute. Maternal cervical canal: 5.2 cm long. Normal lower limit is 2.5 cm. biometrics: Composite gestational age from initial scan: 21 weeks 1 day Other: Ovaries not well seen.. IMPRESSION: Single live intrauterine with ultrasound gestational age of 21 weeks 1 day. Placenta appears within normal limits. We strive to produce accurate, complete, and clear reports of imaging services. To assist us in improving patient care, this report was composed using standard report templates and voice recognition software. Therefore, it may contain abnormal punctuation, insertions and/or omissions. Occasional wrong-word or sound-alike substitutions may occur. Though we review the report and make efforts to correct it, we do recommend that the report be read carefully in proper context to recognize any text inaccuracies. Dictated by: Inna Haines M.D. on 01/20/2023 at 17:53 Approved by: Inna Haines M.D. on 01/20/2023 at 17:55
== END ==
PROVIDERS: Referring Provider Obstetrics & Gynecology; Visit Provider Obstetrics & Gynecology
DX: O99.891 Other specified diseases and conditions complicating pregnancy (principal); R10.2 Pelvic and perineal pain; Z3A.21 21 weeks gestation of pregnancy
CPT/HCPCS: 76815

== ENCOUNTER → 2023-01-26 15:49 | Outpatient (CLI) | payer OTHER, SELFPAY ==
--- NOTE | 2023-01-26 15:51 | DI.MRI.S_ITS ---
PROCEDURE: MR ABDOMEN PELVIS WO CON COMPARISON: None. INDICATIONS: Severe pelvic pain in FINDINGS: Liver: No solid mass. Gallbladder and biliary tree: Cholelithiasis. No wall thickening or pericholecystic edema. No intrahepatic or extrahepatic biliary dilation. Spleen: Normal size. Pancreas: No ductal dilation. Adrenal glands: No adrenal nodules. Kidneys: No hydronephrosis. No solid mass. No complex renal cysts which requires follow-up. Bowel: Nonobstructive bowel. No diverticular disease. Appendix is unremarkable. Nodes and vessels: No adenopathy. No infrarenal aortic aneurysm. Lung bases: Clear. Pelvis: Gravid uterus. anatomy not adequately assessed on this exam. Nabothian cyst present. Bones and soft tissues: No significant degenerative change. Disc height is maintained. No evidence of sacroiliitis. IMPRESSION: Gravid uterus. No findings to explain the patient's severe pelvic pain. No musculoskeletal pathology. Cholelithiasis without evidence of acute cholecystitis or choledocholithiasis. Dictated by: Niranjan Giordano M.D. on 01/27/2023 at 10:33 Approved by: Niranjan Giordano M.D. on 01/27/2023 at 10:38
== END ==
PROVIDERS: Referring Provider Obstetrics & Gynecology; Visit Provider Obstetrics & Gynecology
DX: O26.899 Other specified pregnancy related conditions, unspecified trimester (principal); R10.2 Pelvic and perineal pain; O99.619 Diseases of the digestive system complicating pregnancy, unspecified trimester; K80.20 Calculus of gallbladder without cholecystitis without obstruction
CPT/HCPCS: 72195; 74181

== ENCOUNTER 2023-02-09 16:25 | Outpatient (CLI) | payer OTHER, SELFPAY ==
[2023-02-09 17:33] LABS: Appearance Urine UA CLEAR; Bilirubin Urine UA NEGATIVE (NEGATIVE); Color Urine UA YELLOW; Glucose Urine UA NEGATIVE (Negative); Ketones Urine UA NEGATIVE (NEGATIVE); Leukocyte Esterase Urine UA NEGATIVE (NEGATIVE); Nitrite Urine UA NEGATIVE (Negative); Occult Blood Urine UA NEGATIVE (Negative); Protein Urine UA NEGATIVE (Negative); Urobilinogen Urine UA 0.2 E.U./dL (0.2)
[2023-02-09 17:45] LABS: Bacteria Urine Occasional (0-1); Culture Indicated Urine Cult Not Indicated; RBC Urine 0-1/HPF (0-5/HPF); Squamous Epithelial Cell Urine 1-5 /HPF (0-5/HPF); WBC Urine 0-1/HPF (0-5/HPF)
== END 2023-02-09 18:00 | disposition home or self-care (01) ==
LOC: LABOR 16:44 → OB 02-18 16:05
PROVIDERS: Referring Provider Obstetrics & Gynecology; Visit Provider Obstetrics & Gynecology
DX: Z34.02 Encounter for supervision of normal first pregnancy, second trimester (principal); Z3A.24 24 weeks gestation of pregnancy
CPT/HCPCS: 59025; 81001; G0378; G0379

== ENCOUNTER → 2023-02-10 15:34 | Outpatient (CLI) | payer OTHER, SELFPAY ==
[2023-02-10 17:41] LABS: Hematocrit 34.2 % (36-46); Hemoglobin 11.8 g/dL (12.0-16.0)
[2023-02-10 17:58] LABS: GTT (PREG) 1 Hour PP 50gm Dose 119 mg/dL (76-139)
== END ==
PROVIDERS: Referring Provider Obstetrics & Gynecology; Visit Provider Obstetrics & Gynecology
DX: Z34.02 Encounter for supervision of normal first pregnancy, second trimester (principal); Z3A.26 26 weeks gestation of pregnancy
CPT/HCPCS: 36415; 82950; 85014; 85018

== ENCOUNTER 2023-02-16 13:24 | Outpatient (CLI) | payer OTHER, SELFPAY ==
[2023-02-16] MEDS: BUTALB/APAP/CAFFEINE 50/325/40 TABLET 2 EACH PO (14:25)
[2023-02-16 15:20] LABS: Creatinine Urine Random 30.2 mg/dL; Protein (Total) Urine Random 12 mg/dL (0-12); Protein Creatinine Ratio Urine 0.39 GRAM/24H
== END 2023-02-16 15:45 | disposition home or self-care (01) ==
LOC: LABOR 14:14 → OB 02-22 06:38
PROVIDERS: Referring Provider Obstetrics & Gynecology; Visit Provider Obstetrics & Gynecology
DX: O26.892 Other specified pregnancy related conditions, second trimester (principal); R51.9 Headache, unspecified; Z3A.25 25 weeks gestation of pregnancy
CPT/HCPCS: 59025; 82570; 84156; G0378; G0379

== ENCOUNTER → 2023-02-18 08:54 | Outpatient (CLI) | payer OTHER, SELFPAY ==
[2023-02-18 10:50] LABS: Collection Time Urine 24 Hours; Protein (Total) Urine Random 14 mg/dL (0-12); Total Protein 24 Hour Urine 385 mg/day (42-225); Total Volume Urine 2750 mL
== END ==
PROVIDERS: Referring Provider Obstetrics & Gynecology; Visit Provider Obstetrics & Gynecology
DX: O12.12 Gestational proteinuria, second trimester (principal)
CPT/HCPCS: 84156

== ENCOUNTER → 2023-04-07 11:19 | Outpatient (CLI) | payer OTHER, SELFPAY ==
--- NOTE | 2023-04-07 11:20 | DI.US.S_ITS ---
PROCEDURE: US OB LIMITED INDICATIONS: Size greater than dates; R/O macrosomia OUTSIDE/PRIOR DATING DATA: Last menstrual period (LMP): 08/15/2022. LMP-based estimated date of delivery (BRIANNE): 05/22/2023. First dating scan (date and location): 10/16/2022. Estimated date of delivery (BRIANNE) from first dating scan: 06/01/2023. The calculations are made using the working BRIANNE of 06/01/2023. TECHNIQUE: Real-time scanning was performed of the fetus, with image documentation and biometric measurements. Endovaginal scanning: Non COMPARISON: [facility], OB LIMITED, 01/20/2023, 12:45. FINDINGS: General: A single living intrauterine gestation is present. Presentation: Cephalic. Placenta: Placental position is fundal , without previa. Amniotic fluid index: 11.4 cm, normal range is 5-24 cm. Single deepest vertical pocket is 5.6 cm. heart rate: 147 beats per minute. Maternal cervical canal: 3.9 cm long. Normal lower limit is 2.5 cm. biometrics: Biparietal diameter: 8.4 cm, 33 week 5 day Head circumference: 31.2 cm, 35 week 1 day Abdominal circumference: 30.0 cm, 33 week 5 day Femur length: 6.3 cm, 32 week 5 day Clinically estimated gestational age: 32 week 1 day Composite gestational age from present scan: 33 week 6 day Estimated weight and percentile: 2214 g, 82 percentile IMPRESSION: Single live intrauterine consistent with a 33 week 6 day gestation by current ultrasound. Estimated weight 2214 g, 82 percentile Approved by: Conrado Branham M.D. on 04/07/2023 at 17:15
== END ==
LOC: US 11:19
PROVIDERS: Referring Provider Obstetrics & Gynecology; Visit Provider Obstetrics & Gynecology
DX: O26.843 Uterine size-date discrepancy, third trimester (principal); Z3A.33 33 weeks gestation of pregnancy
CPT/HCPCS: 76815

== ENCOUNTER → 2023-05-07 15:46 | Outpatient (CLI) | payer OTHER, SELFPAY ==
[2023-05-09 11:03] LABS: Strep Grp B PCR NEG for Grp B Strep
== END ==
PROVIDERS: Visit Provider Obstetrics & Gynecology
DX: Z34.03 Encounter for supervision of normal first pregnancy, third trimester (principal); Z3A.36 36 weeks gestation of pregnancy
CPT/HCPCS: 87653

== ENCOUNTER 2023-05-12 12:20 | Outpatient (CLI) | payer OTHER, SELFPAY ==
[2023-05-12 13:31] LABS: Add Manual Diff / Slide Review NO; Basophils Absolute Auto 0 /uL (0-100); Basophils Percent Auto 0.3 % (0-2); Eosinophils Absolute Auto 0 /uL (0-450); Eosinophils Percent Auto 0.3 % (2-4); Hematocrit 34.7 % (36-46); Lymphocytes Absolute Auto 1900 /uL (1100-4500); Lymphocytes Percent Auto 19.1 % (25-40); Mean Corpuscular HGB Conc 34.5 % (30-36); Mean Corpuscular Hemoglobin 25.1 PG (26-34); Mean Corpuscular Volume 72.8 fL (80-100); Monocytes Absolute Auto 700 /uL (0-900); Monocytes Percent Auto 7.3 % (3-14); Neutrophils Absolute Auto 7300 /uL (1500-7000); Platelet Count 244 X10^3/uL (150-400); Red Blood Cell Count 4.76 X10^6/uL (4.0-5.2); Red Cell Distribution Width 15.6 % (11.6-14.8); White Blood Cell Count 10.1 X10^3/uL (4.5-11.0)
[2023-05-12 13:38] LABS: Uric Acid 4.4 mg/dL (2.5-6.2)
[2023-05-12 13:40] LABS: Alanine Aminotransferase 13 IU/L (<35); Albumin 3.2 g/dL (3.5-5.0); Alkaline Phosphatase 117 U/L (38-126); Aspartate Aminotransferase 19 IU/L (14-36); BUN Creatinine Ratio 14.3 (6-22); Bilirubin Total 0.4 mg/dL (0.2-1.3); Blood Urea Nitrogen 6 mg/dL (7-17); Carbon Dioxide 22 mmol/L (22-32); Chloride 103 mmol/L (98-107); Estimated Glomerular Filt Rate > 60 mL/min (>60); Globulin 3.1 g/dL (1.7-4.1); Glucose 94 mg/dL (70-100); HEMOLYSIS < 15 (0-50); Potassium 3.8 mmol/L (3.4-5.1); Sodium 134 mmol/L (137-145); Total Protein 6.3 g/dL (6.3-8.2)
--- NOTE | 2023-05-12 14:00 | P.TNLD_ITS ---
Visit Information Visit Information Date of evaluation: 05/12/23 Primary OB Provider: Rashid Quintanilla Reason for Evaluation: Yes non-stress test and Yes other Comments/Additional reasons for admission: Jaz is a 22-year-old primigravida at 37+ weeks gestational age who on evaluation in the office was found to have mildly elevated systolic blood pressure with a diastolic of 98. She was sent to the center for further evaluation and labs. She denies headache, blurred vision, or right upper quadrant pain. Vital Signs Vital Signs: BP: 125/83 (multiple BP's, all WNL) P: 111 T: 35.8C [facility] Medical History ADHD Migraine without aura Recurrent UTI Surgical History [place] teeth extracted Family History Grandfather Heart disease Hypertension Liver failure Grandmother Cancer Heart disease Hypertension Obesity Grandfather Melanoma Grandmother No problems noted. 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 ) current occupational exposures/hazards: No special dot needs: No travel history: recent (domestic only) seatbelt use: always water heater temp set < 120 deg: Yes working smoke detector in home: Yes fire extinguisher in home: Yes carbon monox detector in home: Yes firearms in home: No do you feel safe at home: Yes Smoking Status: Never smoker second hand exposure: No alcohol intake: former (rarely when not ) substance use type: does not use during the past year weight has: increased > 10 lbs well-balanced diet: daily or most days daily servings fruits/ve or more times/day caffeine: No Type(s) of exercise: walking and weight lifting frequency: 3-4 times per week Review of Systems Review of Systems Narrative: Problem-specific ROS positives included in HPI Exam [facility] Head: normal to inspection, normocephalic and atraumatic Eyes General: appearance normal, both eyes and all related structures Resp Effort & Inspection: normal respiratory effort and able to speak in complete sentences GI Inspection: normal to inspection Palpation: soft and no hepatosplenomegaly Uterus Location (Fundal Height): 40 Presentation: vertex Estimated Weight (lbs): 8 Extrem Right lower extremity: normal to inspection Objective Labs 05/12/23 12:50 05/12/23 12:50 Labs: Laboratory Results - last 24 hr 05/12/23 12:50 WBC 10.1 RBC 4.76 Hgb 12.0 Hct 34.7 L MCV 72.8 L MCH 25.1 L MCHC 34.5 RDW 15.6 H Plt Count 244 Neut % (Auto) 73.0 Lymph % (Auto) 19.1 L [place] % (Auto) 7.3 Eos % (Auto) 0.3 L Baso % (Auto) 0.3 Neut # (Auto) 7300 H Lymph # (Auto) 1900 [place] # (Auto) 700 Eos # (Auto) 0 Baso # (Auto) 0 Sodium 134 L Potassium 3.8 Chloride 103 Carbon Dioxide 22 BUN 6 L Creatinine 0.42 L Estimated GFR > 60 BUN/Creatinine Ratio 14.3 Glucose 94 Uric Acid 4.4 Calcium 9.0 Total Bilirubin 0.4 AST 19 ALT 13 Alkaline Phosphatase 117 Total Protein 6.3 Albumin 3.2 L Globulin 3.1 Albumin/Globulin Ratio 1.0 Evaluation Evaluation Baseline heart rate: 140 Variability: Moderate (11-25) monitor accelerations: Present Monitor Decelerations: Absent Category of Tracing: Reactive Status: Category l Cervical dilation (cm): 1.5 Cervical effacement (%): 75 station: -2 Diagnosis, Plan/Disposition Final Diagnosis (1) Size of fetus inconsistent with dates in third trimester: Status: Acute (2) Elevated BP without diagnosis of hypertension: Status: Acute (3) : Status: Acute Plan/Disposition Plan: Patient will carefully monitor her blood pressures at home at least once or twice daily and report any symptoms such as headache, visual changes, or right upper quadrant pain. Follow-up for her next RIN visit will be as scheduled in 1 week or as needed. OB Disposition: home
== END 2023-05-12 13:56 | disposition home or self-care (01) ==
LOC: LABOR 12:40 → OB 05-13 10:27
PROVIDERS: Referring Provider Obstetrics & Gynecology; Visit Provider Obstetrics & Gynecology
DX: O26.843 Uterine size-date discrepancy, third trimester (principal); O26.893 Other specified pregnancy related conditions, third trimester; R03.0 Elevated blood-pressure reading, without diagnosis of hypertension; Z3A.37 37 weeks gestation of pregnancy
CPT/HCPCS: 59025; 80053; 82570; 84156; 84550; 85025; G0378; G0379

== ENCOUNTER → 2023-05-12 12:22 | Outpatient (CLI) | payer OTHER, SELFPAY ==
[2023-05-12 13:21] LABS: Creatinine Urine Random 56.7 mg/dL; Protein (Total) Urine Random 24 mg/dL (0-12); Protein Creatinine Ratio Urine 0.42 GRAM/24H
== END ==
PROVIDERS: Visit Provider Obstetrics & Gynecology
DX: O16.9 Unspecified maternal hypertension, unspecified trimester (principal)
CPT/HCPCS: 82570; 84156

== ENCOUNTER 2023-05-16 19:25 | Inpatient (IN) | payer OTHER, SELFPAY ==
--- NOTE | 2023-05-16 19:56 | P.HPOB_ITS ---
OB HPI Date/Time Date of admission: 05/16/23 Date Patient Seen: 05/17/23 Time Patient Seen: 09:35 History of Present Condition Chief complaint: IUP, 37+6 wks, PEC w/o severe features, GBS neg : 1 Para: 0 Estimated Date of Delivery: 06/01/23 Estimated Gestational Age (weeks): 37+5 Narrative: Jaz Sweeney is a 22 year old primigravida admitted for cervical ripening and induction at 37+ 5 weeks gestational age due to preeclampsia without severe features. She is currently maintained on labetalol 200 mg p.o. b.i.d. with good control of her blood pressures at home but blood pressures have been rising steadily over the last 2 or 3 days. Patient denies headache, blurred vision, or right upper quadrant pain. All of her previous labs have been within the normal range with the exception of her protein to creatinine ratios which have been elevated. Her course has been largely uneventful with the exception of excessive weight gain and an LGA noted on early scans. Her early dating solid and she has had appropriate milestones throughout. GBS status is negative. Indications Indication for induction OB: gestational HTN/pre-eclampsia History of Present care: good care Dating criteria: LMP confirmed by 1st trimester US Ultrasounds: normal 1st trimester US and normal mid trimester US Obstetrical complications: preeclampsia Medical complications: none Preadmission Labs Blood type: B (+) positive -: Antibody screen: negative, GBS status: negative, HIV: negative and RPR/VDLR: negative -: Chlamydia screen: not detected and Gonorrhea screen: not detected -: Rubella: immune and Varicella: immune HCT: 32.0 HCAB: negative PAP: Normal Quad screen: Normal (AFP testing negative) Cell-free DNA: Low risk male Urine: Most recent prot:creat .42 1 hr GTT: 119 Prior (ies) History: N/A Evaluation Evaluation Baseline heart rate: 140 Variability: Moderate (11-25) monitor accelerations: Present Monitor Decelerations: Absent Contraction Frequency (minutes): 4 Uterine Contraction Intensity: Mild Category of Tracing: Reactive Status: Category l Dilation (cm): 1 Effacement (%): 75 Dilation: Closed Effacement: 60-70% station: -2 Position of cervix: mid Consistency: medium [place] score: 5 PFSH Medical History ADHD Migraine without aura Recurrent UTI Surgical History [place] teeth extracted Family History Grandfather Heart disease Hypertension Liver failure Grandmother Cancer Heart disease Hypertension Obesity Grandfather Melanoma Grandmother No problems noted. 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 ) current occupational exposures/hazards: No special dot needs: No travel history: recent (domestic only) seatbelt use: always water heater temp set < 120 deg: Yes working smoke detector in home: Yes fire extinguisher in home: Yes carbon monox detector in home: Yes firearms in home: No do you feel safe at home: Yes Smoking Status: Never smoker second hand exposure: No alcohol intake: former (rarely when not ) substance use type: does not use during the past year weight has: increased > 10 lbs well-balanced diet: daily or most days daily servings fruits/ve or more times/day caffeine: No Type(s) of exercise: walking and weight lifting frequency: 3-4 times per week Meds Home Medications and Allergies Home Medications Medication Instructions Recorded Confirmed Type vitamin-ferrous sulfate tab PO 10/12/22 05/12/23 History 27 mg iron-folic acid 0.8 mg tablet ondansetron 4 mg disintegrating 4 mg PO Q6H PRN nausea and 10/27/22 05/12/23 Rx tablet vomiting #20 tabs metoclopramide HCl 10 mg tablet 10 mg PO Q6H PRN nausea and 11/04/22 05/12/23 Rx (Reglan) vomiting #20 tabs uoufhwalle-cdbdaruclvrig-ajnvloip 1 cap PO TID PRN pain #10 caps 12/31/22 05/12/23 Rx 50 mg-300 mg-40 mg capsule (Fioricet) breast pump #1 ea 02/10/23 05/12/23 Rx ferrous sulfate 137 mg (45 mg mg PO 03/10/23 05/12/23 History iron) tablet,extended release (Slow Fe) labetalol 100 mg tablet 100 mg PO BID #60 tabs 05/12/23 Rx Allergies Allergy/AdvReac Type Severity Reaction Status Date / Time oxybutynin Allergy Mild Rash Verified 05/12/23 11:38 Review of Systems Review of Systems Narrative: Problem-specific ROS positives included in HPI OB Exam Vital signs Blood Pressure: 144/69 Pulse Rate: 106 Temperature: 99.7 F Extremities Lower extremity: Yes edema (1+) Laterality: bilateral DTR's: Rt Patellar: 2+ and Lt Patellar: 2+ GI Inspection: normal to inspection and obesity Palpation: Yes soft and Yes no hepatosplenomegaly Uterus Location (Fundal Height): 40 Presentation: vertex Estimated Weight (lbs): 7 Objective Labs 05/16/23 20:45 05/16/23 20:45 Labs: Prtoein:Creatinine = .08 Assessment and Plan Assessment and Plan Assessment and Plan narrative: ASSESSMENT 1. Intrauterine 2. Preeclampsia without severe features 3. Excessive weight gain of 4. Anemia 5. GBS negative status PLAN 1. Admit for cervical ripening and delivery 2. See admission orders
[2023-05-16 20:17] VITALS: BP 144/69
[2023-05-16] MEDS: LABETALOL 100 MG TABLET 200 MG PO (20:33)
[2023-05-16 20:57] LABS: Add Manual Diff / Slide Review NO; Basophils Absolute Auto 0 /uL (0-100); Basophils Percent Auto 0.3 % (0-2); Eosinophils Absolute Auto 0 /uL (0-450); Eosinophils Percent Auto 0.2 % (2-4); Hemoglobin 10.9 g/dL (12.0-16.0); Lymphocytes Absolute Auto 2200 /uL (1100-4500); Lymphocytes Percent Auto 19.2 % (25-40); Mean Corpuscular HGB Conc 33.9 % (30-36); Mean Corpuscular Hemoglobin 24.4 PG (26-34); Monocytes Absolute Auto 900 /uL (0-900); Monocytes Percent Auto 7.7 % (3-14); Neutrophils Absolute Auto 8400 /uL (1500-7000); Neutrophils Percent Auto 72.6 % (50-75); Platelet Count 261 X10^3/uL (150-400); Red Blood Cell Count 4.44 X10^6/uL (4.0-5.2); Red Cell Distribution Width 15.6 % (11.6-14.8); White Blood Cell Count 11.6 X10^3/uL (4.5-11.0)
[2023-05-16 21:14] LABS: Alanine Aminotransferase 14 IU/L (<35); Albumin 3.1 g/dL (3.5-5.0); Alkaline Phosphatase 125 U/L (38-126); Aspartate Aminotransferase 22 IU/L (14-36); BUN Creatinine Ratio 23.5 (6-22); Bilirubin Total 0.3 mg/dL (0.2-1.3); Blood Urea Nitrogen 12 mg/dL (7-17); Calcium 9.2 mg/dL (8.4-10.2); Carbon Dioxide 21 mmol/L (22-32); Chloride 106 mmol/L (98-107); Estimated Glomerular Filt Rate > 60 mL/min (>60); Glucose 83 mg/dL (70-100); HEMOLYSIS < 15 (0-50); Potassium 3.9 mmol/L (3.4-5.1); Sodium 134 mmol/L (137-145); Total Protein 6.1 g/dL (6.3-8.2); Uric Acid 5.2 mg/dL (2.5-6.2)
[2023-05-16 21:45] LABS: Creatinine Urine Random 140.1 mg/dL; Protein (Total) Urine Random 12 mg/dL (0-12); Protein Creatinine Ratio Urine 0.08 GRAM/24H
[2023-05-17] MEDS: miSOPROStoL 25 MCG TABLET 50 MCG PO ×3 (05:13→14:03)
--- NOTE | 2023-05-17 08:25 | DI.US.S_ITS ---
PROCEDURE: US OB >= 14 WEEKS FETUS INDICATIONS: EFW OUTSIDE/PRIOR DATING DATA: Last menstrual period (LMP): 08/15/2022. LMP-based estimated date of delivery (BRIANNE): 05/22/2023. First dating scan (date and location): 10/08/2022. Estimated date of delivery (BRIANNE) from first dating scan: 06/01/2023. The calculations are made using the ultrasound BRIANNE of 06/01/2023. TECHNIQUE: Real-time scanning was performed of the fetus, with image documentation and biometric measurements. Endovaginal scanning: Not performed COMPARISON: None. FINDINGS: General: A single living intrauterine gestation is present. Presentation: Vertex. Placenta: Placental position is left posterior fundal , without previa. Amniotic fluid index: 7.1 cm, normal range is 5-24 cm. Single deepest vertical pocket is 3.6 cm. heart rate: 143 beats per minute. Maternal cervical canal: Not well seen. biometrics: Biparietal diameter: 9.5 cm, 38 weeks 6 days Head circumference: 33.1 cm, 37 weeks 5 days Abdominal circumference: 34.4 cm, 38 weeks 2 days Femur length: 7.3 cm, 37 weeks 4 days Clinically estimated gestational age: 37 weeks 6 days Composite gestational age from present scan: 38 weeks 1 day Estimated weight and percentile: 3408 g, 69th percentile IMPRESSION: Single living intrauterine at 37 weeks 6 days, BRIANNE of 06/01/2023. Estimated weight of 3408 g, 69th percentile. We strive to produce accurate, complete, and clear reports of imaging services. To assist us in improving patient care, this report was composed using standard report templates and voice recognition software. Therefore, it may contain abnormal punctuation, insertions and/or omissions. Occasional wrong-word or sound-alike substitutions may occur. Though we review the report and make efforts to correct it, we do recommend that the report be read carefully in proper context to recognize any text inaccuracies. Dictated by: Niranjan Giordano M.D. on 05/17/2023 at 11:32 Approved by: Niranjan Giordano M.D. on 05/17/2023 at 11:34
[2023-05-17 09:00] VITALS: BP 117/55; PULSE 97
[2023-05-17 10:47] VITALS: BP 144/69; PULSE 106; TEMP 37.6
--- NOTE | 2023-05-17 10:47 | PM.OBPNLAB ---
Date/Time Date Patient Seen: 05/17/23 Time Patient Seen: 10:47 Pain Control Pain control: tolerating well Pelvic Exam Dilation (cm): 1 Effacement (%): 75 station: -2 Amniotic membrane status: Intact Contractions Contractions on admission: none Monitor mode: External Contraction frequency (min): 4 Contraction duration (min): 1 Contraction pattern: Irregular Contraction intensity: Mild Status status: Category l Heart Rate Baseline: 140 Assessment and Plan Assessment: other (Ripening ongoing) Plan: continuous present management Comments: Patient has little cervical change after 2 doses of misoprostol but will continue through the day and reassess this afternoon/evening. Growth ultrasound from this a.m. pending but according to the pipeline technician, the infant appears to be AGA. Blood pressure has stabilized markedly at bed rest and will decrease her labetalol dosage but keep close observation for any further spikes in blood pressure. Repeat labs in a.m.
[2023-05-17 12:26] VITALS: BP 138/84; PULSE 94
[2023-05-17] MEDS: LABETALOL 100 MG TABLET PO (12:26)
--- NOTE | 2023-05-17 17:11 | PM.OBPNLAB ---
Date/Time Date Patient Seen: 05/17/23 Time Patient Seen: 17:11 Pain Control Pain control: tolerating well Pelvic Exam Dilation (cm): 1 Effacement (%): 80 station: -2 Amniotic membrane status: Intact Comments: Vann balloon placed at 1702 under aseptic conditions. Balloon filled w/ 60 cc sterile NaCl. Tolerated well. FHR category 1 before and after placement. Contractions Contractions on admission: none Monitor mode: External Contraction frequency (min): 4 Contraction pattern: Irregular Contraction intensity: Mild Status status: Category l Heart Rate Baseline: 140 Monitor Accelerations: Present Monitor Decelerations: Absent Monitor Variability: Moderate Assessment and Plan Assessment: other Plan: other (See below.) Comments: Vann balloon placed and will continue PO cytotec. MARIA INES as desired and AROM when feasible.
[2023-05-17] MEDS: OXYTOCIN PREMIX 30 UNIT/500 ML PLAST..BAG IV (21:27)
--- NOTE | 2023-05-18 08:28 | PM.OBPNLAB ---
Date/Time Date Patient Seen: 05/18/23 Time Patient Seen: 08:29 Pain Control Pain control: tolerating well and epidural Pelvic Exam Effacement (%): 80 station: -2 Amniotic membrane status: Ruptured (AROM performed 819, clear fluid, FSE applied) Contractions Contractions on admission: none Monitor mode: Internal (Scalp electrode, external toco for contractions) Pitocin rate (mU/min): 0 Contraction frequency (min): 4 Contraction duration (min): 5 Contraction pattern: Irregular Contraction phase: Resting Contraction intensity: Mild Status status: Category l Heart Rate Baseline: 150 Monitor Accelerations: Present Monitor Decelerations: Prolonged (Post MARIA INES placement, resolved with fluid bolus) Monitor Variability: Moderate Assessment and Plan Assessment: induction ongoing Plan: continuous present management Comments: Pitocin augmentation discontinued with episode of bradycardia following MARIA INES placement. Will resume Pitocin augmentation post AROM with IUPC placement planned should patient failed to progress over the next few hours. Patient is aware of plan and rationale for evaluation/management decisions.
[2023-05-18] MEDS: LACTATED RINGERS 1,000 ML 100 ML IV ×3 (09:00→23:00)
--- NOTE | 2023-05-18 11:04 | PM.AN.REGBLK ---
Regional Block Pre-procedure Procedure: Continuous Lumbar Epidural for L&D Attending OB provider: Rashid Quintanilla PM/ROS narrative: , gestational diabetes Hx: No personal or family history of anesthesia problems. ASA Class: III Labs: Hct 32.0 % (36-46) L 05/16/23 20:45 Plt Count 261 X10^3/uL (150-400) 05/16/23 20:45 Medications: Current Medications Generic Name Dose Route Start Last Admin Trade Name Freq PRN Reason Stop Dose Admin Carboprost Tromethamine 250 mcg 05/16/23 19:44 Carboprost 250 Mcg/Ml Ampul IM Q90M PRN Bleeding Diphenhydramine HCl 25 mg 05/18/23 07:38 Diphenhydramine 50 Mg/Ml Vial IV Q10M PRN Pruritis Ephedrine Sulfate 5 mg 05/18/23 07:38 Ephedrine 50 Mg/Ml Vial IV Q5M PRN Blood pressure decrease more than 20% of baseline. Fentanyl 50 mcg 05/16/23 19:44 Fentanyl 100 Mcg/2 Ml Inj IV Q1H PRN Pain, Moderate (4-6) Lactated Ringer's 1,000 mls @ 100 mls/hr 05/16/23 19:45 Lactated Ringers IV CONT SRAVANTHI Tranexamic Acid 1,000 mg/ 100 mls @ 200 mls/hr 05/16/23 19:44 Sodium Chloride IV NOW PRN Bleeding Oxytocin/Lactated Ringer's 30 unit in 500 mls @ 200 mls/hr 05/16/23 19:44 Oxytocin Premix IV CONT PRN Bleeding Protocol Oxytocin/Lactated Ringer's 30 unit in 500 mls @ 2 mls/hr 05/17/23 21:07 05/17/23 21:27 Oxytocin Premix IV 2 milliunit/min TITRATE SRAVANTHI 2 mls/hr Administration Protocol 2 MILLIUNIT/MIN FENT 2MCG/ML BUPIV 0.125% EPI 200 mcg in 100 mls @ 8 mls/hr 05/18/23 07:45 Fentanyl/Bupiv/Ns 2mcg/Ml - 0.125% EPIDURAL CONT SRAVANTHI Labetalol HCl 20 mg 05/16/23 19:44 Labetalol 20 Mg/4 Ml Syringe IV PRN PRN Hypertensive Emergency Labetalol HCl 100 mg 05/17/23 12:30 05/17/23 12:26 Labetalol 100 Mg Tablet PO 100 mg BID SRAVANTHI Administration Lidocaine HCl 20 ml 05/16/23 19:44 Lidocaine 1% 20 Ml INJ INTRA-OP PRN Post Delivery Methylergonovine Maleate 0.2 mg 05/16/23 19:44 Methylergonovine 0.2 Mg/Ml Vial IM NOW PRN Bleeding Methylergonovine Maleate 0.2 mg 05/16/23 19:44 Methylergonovine 0.2 Mg Tablet PO Q6HR PRN Heavy Bleeding Misoprostol 50 mcg 05/16/23 19:45 05/17/23 14:03 Misoprostol 25 Mcg Tablet PO 50 mcg Q4H SRAVANTHI Administration Misoprostol 400 mcg 05/16/23 19:44 Misoprostol 200 Mcg Tablet SL NOW PRN Bleeding Misoprostol 800 mcg 05/16/23 19:44 Misoprostol 200 Mcg Tablet PA NOW PRN Bleeding Nalbuphine HCl 2.5 mg 05/18/23 07:38 Nalbuphine 20 Mg/Ml Ampul IV Q10M PRN Pruritis Naloxone HCl 0.2 mg 05/16/23 19:44 Naloxone 0.4 Mg/Ml Vial IV Q2MIN PRN Opiate Reversal Naloxone HCl 0.4 mg 05/18/23 07:43 Naloxone 0.4 Mg/Ml Vial IV Q2MIN PRN Opiate Reversal Ondansetron HCl 4 mg 05/18/23 07:46 Ondansetron 4 Mg/2 Ml Inj IV Q6HR PRN Nausea And Vomiting Oxytocin 10 unit 05/16/23 19:44 Oxytocin 10 Unit/Ml Vial IM NOW PRN Bleeding Zolpidem Tartrate 5 mg 05/16/23 19:44 Zolpidem 5 Mg Tablet PO BEDTIME PRN Sleep Allergies: Allergies Allergy/AdvReac Type Severity Reaction Status Date / Time oxybutynin Allergy Mild Rash Verified 05/12/23 11:38 Procedure Insertion date: 05/18/23 Insertion time: 06:37 Prep/Local: betadine x3 and 1% lidocaine Interspace: L3-L4 Patient position: sitting Needle: 18 gauge Hustead Loss of resistance with: saline (+Air) MICHELE at (cm): 9 Catheter placed at SKIN (cm): 15 Catheter in SPACE (cm): 6 Insertion: No CSF, No Blood, No Paresthesia with insertion, No Paresthesia with injection and No Test dose reaction Initial Medications TEST DOSE time: 07:04 TEST DOSE: 1.5% lidocaine with epinephrine 1:200k (mL): 3 BOLUS DOSE time: 07:05 BOLUS DOSE (mL): 7 BOLUS DOSE med: other (2% Lidocaine) Infusion INFUSION: 0.125% bupivacaine and with fentanyl 2 mcg/mL Initial rate (mL/hr): 8 Subsequent interventions: Bolus 2% Lidocaine 5ml. Post-procedure Anesthesia date START: 05/18/23 Anesthesia time START: 06:37 Anesthesia date END: 05/18/23 Anesthesia time END: 19:23 Post-procedure Anesthesia Assessment: Yes CV function: HR/BP stable, Yes Resp function: RR/sat/airway adequate, Yes Post-op hydration adequate, Yes Pain control adequate, Yes Nausea & vomiting absent, Yes Temperature > 36 C, Yes Mental status appropriate and Yes Anesthesia complications (Taken to for lack of pain relief, delivery @1923.)
--- NOTE | 2023-05-18 12:35 | PM.OBPNLAB ---
Date/Time Date Patient Seen: 05/18/23 Time Patient Seen: 12:35 Pain Control Pain control: epidural Pelvic Exam Dilation (cm): 4.5 Effacement (%): 85 station: -2 Amniotic membrane status: Ruptured (AROM performed 0820, clear fluid, FSE applied) Contractions Monitor mode: Internal (Scalp electrode, external toco for contractions) Pitocin rate (mU/min): 6 Contraction frequency (min): 4 Contraction pattern: Irregular Contraction phase: Resting Contraction intensity: Mild Status status: Category l Heart Rate Baseline: 150 Monitor Accelerations: Present Monitor Decelerations: Absent Monitor Variability: Moderate Assessment and Plan Assessment: induction ongoing Plan: continuous present management Comments: The limiting factor at present is patient's tolerance of labor due to the borderline adequacy of her epidural. Discussed with Orion who will bolus her again but she does not get substantial relief, replacement of the MARIA INES catheter would be appropriate. Once we get the patient more comfortable replace an IUPC as she would beginning make progress both dilatation and descent. Further decisions will be based on patient's clinical response to the epidural and progress in labor.
[2023-05-18 12:50] VITALS: BP 149/76; PULSE 111
[2023-05-18] MEDS: LABETALOL 100 MG TABLET PO (12:50)
--- NOTE | 2023-05-18 13:05 | PM.AN.REGBLK ---
Regional Block Pre-procedure Labs: Hct 32.0 % (36-46) L 05/16/23 20:45 Plt Count 261 X10^3/uL (150-400) 05/16/23 20:45 Medications: Current Medications Generic Name Dose Route Start Last Admin Trade Name Freq PRN Reason Stop Dose Admin Carboprost Tromethamine 250 mcg 05/16/23 19:44 Carboprost 250 Mcg/Ml Ampul IM Q90M PRN Bleeding Diphenhydramine HCl 25 mg 05/18/23 07:38 Diphenhydramine 50 Mg/Ml Vial IV Q10M PRN Pruritis Ephedrine Sulfate 5 mg 05/18/23 07:38 Ephedrine 50 Mg/Ml Vial IV Q5M PRN Blood pressure decrease more than 20% of baseline. Fentanyl 50 mcg 05/16/23 19:44 Fentanyl 100 Mcg/2 Ml Inj IV Q1H PRN Pain, Moderate (4-6) Lactated Ringer's 1,000 mls @ 100 mls/hr 05/16/23 19:45 Lactated Ringers IV CONT SRAVANTHI Tranexamic Acid 1,000 mg/ 100 mls @ 200 mls/hr 05/16/23 19:44 Sodium Chloride IV NOW PRN Bleeding Oxytocin/Lactated Ringer's 30 unit in 500 mls @ 200 mls/hr 05/16/23 19:44 Oxytocin Premix IV CONT PRN Bleeding Protocol Oxytocin/Lactated Ringer's 30 unit in 500 mls @ 2 mls/hr 05/17/23 21:07 05/17/23 21:27 Oxytocin Premix IV 2 milliunit/min TITRATE SRAVANTHI 2 mls/hr Administration Protocol 2 MILLIUNIT/MIN FENT 2MCG/ML BUPIV 0.125% EPI 200 mcg in 100 mls @ 8 mls/hr 05/18/23 07:45 Fentanyl/Bupiv/Ns 2mcg/Ml - 0.125% EPIDURAL CONT SRAVANTHI Labetalol HCl 20 mg 05/16/23 19:44 Labetalol 20 Mg/4 Ml Syringe IV PRN PRN Hypertensive Emergency Labetalol HCl 100 mg 05/17/23 12:30 05/18/23 12:50 Labetalol 100 Mg Tablet PO 100 mg BID SRAVANTHI Administration Lidocaine HCl 20 ml 05/16/23 19:44 Lidocaine 1% 20 Ml INJ INTRA-OP PRN Post Delivery Methylergonovine Maleate 0.2 mg 05/16/23 19:44 Methylergonovine 0.2 Mg/Ml Vial IM NOW PRN Bleeding Methylergonovine Maleate 0.2 mg 05/16/23 19:44 Methylergonovine 0.2 Mg Tablet PO Q6HR PRN Heavy Bleeding Misoprostol 50 mcg 05/16/23 19:45 05/17/23 14:03 Misoprostol 25 Mcg Tablet PO 50 mcg Q4H SRAVANTHI Administration Misoprostol 400 mcg 05/16/23 19:44 Misoprostol 200 Mcg Tablet SL NOW PRN Bleeding Misoprostol 800 mcg 05/16/23 19:44 Misoprostol 200 Mcg Tablet [place] NOW PRN Bleeding Nalbuphine HCl 2.5 mg 05/18/23 07:38 Nalbuphine 20 Mg/Ml Ampul IV Q10M PRN Pruritis Naloxone HCl 0.2 mg 05/16/23 19:44 Naloxone 0.4 Mg/Ml Vial IV Q2MIN PRN Opiate Reversal Naloxone HCl 0.4 mg 05/18/23 07:43 Naloxone 0.4 Mg/Ml Vial IV Q2MIN PRN Opiate Reversal Ondansetron HCl 4 mg 05/18/23 07:46 Ondansetron 4 Mg/2 Ml Inj IV Q6HR PRN Nausea And Vomiting Oxytocin 10 unit 05/16/23 19:44 Oxytocin 10 Unit/Ml Vial IM NOW PRN Bleeding Zolpidem Tartrate 5 mg 05/16/23 19:44 Zolpidem 5 Mg Tablet PO BEDTIME PRN Sleep Allergies: Allergies Allergy/AdvReac Type Severity Reaction Status Date / Time oxybutynin Allergy Mild Rash Verified 05/12/23 11:38 --: C/O pain with contractions. States epidural bolus lasted 1 hour then no pain relief. Initial Medications BOLUS DOSE time: 12:16 BOLUS DOSE (mL): 5 BOLUS DOSE med: other (2%PF Lidocaine)
--- NOTE | 2023-05-18 13:07 | PM.AN.REGBLK ---
Regional Block Pre-procedure Labs: Hct 32.0 % (36-46) L 05/16/23 20:45 Plt Count 261 X10^3/uL (150-400) 05/16/23 20:45 Medications: Current Medications Generic Name Dose Route Start Last Admin Trade Name Freq PRN Reason Stop Dose Admin Carboprost Tromethamine 250 mcg 05/16/23 19:44 Carboprost 250 Mcg/Ml Ampul IM Q90M PRN Bleeding Diphenhydramine HCl 25 mg 05/18/23 07:38 Diphenhydramine 50 Mg/Ml Vial IV Q10M PRN Pruritis Ephedrine Sulfate 5 mg 05/18/23 07:38 Ephedrine 50 Mg/Ml Vial IV Q5M PRN Blood pressure decrease more than 20% of baseline. Fentanyl 50 mcg 05/16/23 19:44 Fentanyl 100 Mcg/2 Ml Inj IV Q1H PRN Pain, Moderate (4-6) Lactated Ringer's 1,000 mls @ 100 mls/hr 05/16/23 19:45 Lactated Ringers IV CONT SRAVANTHI Tranexamic Acid 1,000 mg/ 100 mls @ 200 mls/hr 05/16/23 19:44 Sodium Chloride IV NOW PRN Bleeding Oxytocin/Lactated Ringer's 30 unit in 500 mls @ 200 mls/hr 05/16/23 19:44 Oxytocin Premix IV CONT PRN Bleeding Protocol Oxytocin/Lactated Ringer's 30 unit in 500 mls @ 2 mls/hr 05/17/23 21:07 05/17/23 21:27 Oxytocin Premix IV 2 milliunit/min TITRATE SRAVANTHI 2 mls/hr Administration Protocol 2 MILLIUNIT/MIN FENT 2MCG/ML BUPIV 0.125% EPI 200 mcg in 100 mls @ 8 mls/hr 05/18/23 07:45 Fentanyl/Bupiv/Ns 2mcg/Ml - 0.125% EPIDURAL CONT SRAVANTHI Labetalol HCl 20 mg 05/16/23 19:44 Labetalol 20 Mg/4 Ml Syringe IV PRN PRN Hypertensive Emergency Labetalol HCl 100 mg 05/17/23 12:30 05/18/23 12:50 Labetalol 100 Mg Tablet PO 100 mg BID SRAVANTHI Administration Lidocaine HCl 20 ml 05/16/23 19:44 Lidocaine 1% 20 Ml INJ INTRA-OP PRN Post Delivery Methylergonovine Maleate 0.2 mg 05/16/23 19:44 Methylergonovine 0.2 Mg/Ml Vial IM NOW PRN Bleeding Methylergonovine Maleate 0.2 mg 05/16/23 19:44 Methylergonovine 0.2 Mg Tablet PO Q6HR PRN Heavy Bleeding Misoprostol 50 mcg 05/16/23 19:45 05/17/23 14:03 Misoprostol 25 Mcg Tablet PO 50 mcg Q4H SRAVANTHI Administration Misoprostol 400 mcg 05/16/23 19:44 Misoprostol 200 Mcg Tablet SL NOW PRN Bleeding Misoprostol 800 mcg 05/16/23 19:44 Misoprostol 200 Mcg Tablet [place] NOW PRN Bleeding Nalbuphine HCl 2.5 mg 05/18/23 07:38 Nalbuphine 20 Mg/Ml Ampul IV Q10M PRN Pruritis Naloxone HCl 0.2 mg 05/16/23 19:44 Naloxone 0.4 Mg/Ml Vial IV Q2MIN PRN Opiate Reversal Naloxone HCl 0.4 mg 05/18/23 07:43 Naloxone 0.4 Mg/Ml Vial IV Q2MIN PRN Opiate Reversal Ondansetron HCl 4 mg 05/18/23 07:46 Ondansetron 4 Mg/2 Ml Inj IV Q6HR PRN Nausea And Vomiting Oxytocin 10 unit 05/16/23 19:44 Oxytocin 10 Unit/Ml Vial IM NOW PRN Bleeding Zolpidem Tartrate 5 mg 05/16/23 19:44 Zolpidem 5 Mg Tablet PO BEDTIME PRN Sleep Allergies: Allergies Allergy/AdvReac Type Severity Reaction Status Date / Time oxybutynin Allergy Mild Rash Verified 05/12/23 11:38 Initial Medications BOLUS DOSE time: 12:24 BOLUS DOSE (mL): 2 BOLUS DOSE med: other (fentanyl 50mg/ml)
--- NOTE | 2023-05-18 13:59 | PM.AN.REGBLK ---
Regional Block Pre-procedure Procedure: Continuous Lumbar Epidural for L&D Attending OB provider: Rashid Quintanilla PMH/ROS narrative: , term IOL for HTN/PEC without severe features. First epidural likely dislodge. Called for replacement. ASA Class: III Labs: Hct 32.0 % (36-46) L 05/16/23 20:45 Plt Count 261 X10^3/uL (150-400) 05/16/23 20:45 Medications: Current Medications Generic Name Dose Route Start Last Admin Trade Name Freq PRN Reason Stop Dose Admin Carboprost Tromethamine 250 mcg 05/16/23 19:44 Carboprost 250 Mcg/Ml Ampul IM Q90M PRN Bleeding Diphenhydramine HCl 25 mg 05/18/23 07:38 Diphenhydramine 50 Mg/Ml Vial IV Q10M PRN Pruritis Ephedrine Sulfate 5 mg 05/18/23 07:38 Ephedrine 50 Mg/Ml Vial IV Q5M PRN Blood pressure decrease more than 20% of baseline. Fentanyl 50 mcg 05/16/23 19:44 Fentanyl 100 Mcg/2 Ml Inj IV Q1H PRN Pain, Moderate (4-6) Lactated Ringer's 1,000 mls @ 100 mls/hr 05/16/23 19:45 05/18/23 13:45 Lactated Ringers IV 100 mls/hr CONT SRAVANTHI Administration Tranexamic Acid 1,000 mg/ 100 mls @ 200 mls/hr 05/16/23 19:44 Sodium Chloride IV NOW PRN Bleeding Oxytocin/Lactated Ringer's 30 unit in 500 mls @ 200 mls/hr 05/16/23 19:44 Oxytocin Premix IV CONT PRN Bleeding Protocol Oxytocin/Lactated Ringer's 30 unit in 500 mls @ 2 mls/hr 05/17/23 21:07 05/17/23 21:27 Oxytocin Premix IV 2 milliunit/min TITRATE SRAVANTHI 2 mls/hr Administration Protocol 2 MILLIUNIT/MIN FENT 2MCG/ML BUPIV 0.125% EPI 200 mcg in 100 mls @ 8 mls/hr 05/18/23 07:45 Fentanyl/Bupiv/Ns 2mcg/Ml - 0.125% EPIDURAL CONT SRAVANTHI Labetalol HCl 20 mg 05/16/23 19:44 Labetalol 20 Mg/4 Ml Syringe IV PRN PRN Hypertensive Emergency Labetalol HCl 100 mg 05/17/23 12:30 05/18/23 12:50 Labetalol 100 Mg Tablet PO 100 mg BID SRAVANTHI Administration Lidocaine HCl 20 ml 05/16/23 19:44 Lidocaine 1% 20 Ml INJ INTRA-OP PRN Post Delivery Methylergonovine Maleate 0.2 mg 05/16/23 19:44 Methylergonovine 0.2 Mg/Ml Vial IM NOW PRN Bleeding Methylergonovine Maleate 0.2 mg 05/16/23 19:44 Methylergonovine 0.2 Mg Tablet PO Q6HR PRN Heavy Bleeding Misoprostol 50 mcg 05/16/23 19:45 05/17/23 14:03 Misoprostol 25 Mcg Tablet PO 50 mcg Q4H SRAVANTHI Administration Misoprostol 400 mcg 05/16/23 19:44 Misoprostol 200 Mcg Tablet SL NOW PRN Bleeding Misoprostol 800 mcg 05/16/23 19:44 Misoprostol 200 Mcg Tablet [place] NOW PRN Bleeding Nalbuphine HCl 2.5 mg 05/18/23 07:38 Nalbuphine 20 Mg/Ml Ampul IV Q10M PRN Pruritis Naloxone HCl 0.2 mg 05/16/23 19:44 Naloxone 0.4 Mg/Ml Vial IV Q2MIN PRN Opiate Reversal Naloxone HCl 0.4 mg 05/18/23 07:43 Naloxone 0.4 Mg/Ml Vial IV Q2MIN PRN Opiate Reversal Ondansetron HCl 4 mg 05/18/23 07:46 Ondansetron 4 Mg/2 Ml Inj IV Q6HR PRN Nausea And Vomiting Oxytocin 10 unit 05/16/23 19:44 Oxytocin 10 Unit/Ml Vial IM NOW PRN Bleeding Zolpidem Tartrate 5 mg 05/16/23 19:44 Zolpidem 5 Mg Tablet PO BEDTIME PRN Sleep Allergies: Allergies Allergy/AdvReac Type Severity Reaction Status Date / Time oxybutynin Allergy Mild Rash Verified 05/12/23 11:38 Procedure Insertion date: 05/18/23 Insertion time: 14:00 Prep/Local: betadine x3 and 1% lidocaine Interspace: L2-3 Patient position: sitting Needle: 18 gauge Mushtaq (5) Loss of resistance with: saline MICHELE at (cm): 8 Catheter placed at SKIN (cm): 15 Catheter in SPACE (cm): 7 Insertion: No CSF, No Blood, No Paresthesia with insertion, No Paresthesia with injection and No Test dose reaction Initial Medications TEST DOSE time: 13:50 TEST DOSE: 1.5% lidocaine with epinephrine 1:200k (mL): 3 BOLUS DOSE time: 13:55 BOLUS DOSE (mL): 6 BOLUS DOSE med: 0.25% bupivacaine Infusion INFUSION: 0.125% bupivacaine and with fentanyl 2 mcg/mL Initial rate (mL/hr): 10 Subsequent interventions: PCEA 10/hr +4 bolus 17:25 Pt reports return of sensation. 6mL 2% chloroprocaine. 17:45 no improvement, 6mL 2% chloroprocaine - block too low, L1 and below To CS Post-procedure Anesthesia date START: 05/18/23 Anesthesia time START: 13:35 Anesthesia date END: 05/18/23 Anesthesia time END: 18:30 Post-procedure Anesthesia Assessment: Yes CV function: HR/BP stable, Yes Resp function: RR/sat/airway adequate, Yes Post-op hydration adequate, Yes Pain control adequate, Yes Nausea & vomiting absent, Yes Temperature > 36 C, Yes Mental status appropriate and No Anesthesia complications
[2023-05-18] MEDS: FENT 2MCG/ML BUPIV 0.125% EPI 200 MCG/100 ML PLAST..BAG 8 MCG EPIDURAL (14:07)
--- NOTE | 2023-05-18 15:03 | PM.OBPNLAB ---
Date/Time Date Patient Seen: 05/18/23 Time Patient Seen: 15:03 Pain Control Pain control: tolerating well and epidural Comments: Much better pain control after MARIA INES replaced Pelvic Exam Dilation (cm): 5 Effacement (%): 90 station: -2 Amniotic membrane status: Ruptured (AROM performed 0820, clear fluid, FSE applied) Contractions Monitor mode: Internal (Scalp electrode, external toco for contractions) Pitocin rate (mU/min): 8 Contraction frequency (min): 4 Contraction duration (min): 1 Contraction pattern: Regular Contraction phase: Resting (17 mm Hg) Contraction intensity: Moderate Intrauterine tone measurement: 40 (Ctx 40 mm Hg peak; 23 mm amplitude) Status status: Category l Heart Rate Baseline: 145 Monitor Accelerations: Present Monitor Decelerations: Absent Monitor Variability: Minimal (Minimal to moderate) Assessment and Plan Assessment: induction ongoing Plan: continuous present management Comments: Will augment to affect adequate uterine contraction activity now that MARIA INES is effectively relieving her labor pains and observe for progress. Although her progress has been slow there is no caput, moulding, or cervical edema so hopefull she will start progressing more rapidly once she enters the active phase of labor.
--- NOTE | 2023-05-18 17:55 | PM.OBPNLAB ---
Date/Time Date Patient Seen: 05/18/23 Pain Control Pain control: epidural Comments: Despite the epidural being replaced, her pain relief is now minimal and patient is adamant that she wishes to proceed with primary section rather than continuing labor Pelvic Exam Effacement (%): 90 station: -2 Amniotic membrane status: Ruptured (AROM performed 0820, clear fluid, FSE applied) Contractions Monitor mode: Internal (Scalp electrode, external toco for contractions) Pitocin rate (mU/min): 0 (Pitocin discontinued due to maternal distress) Contraction frequency (min): 4 Contraction pattern: Regular Contraction phase: Resting (17 mm Hg) Contraction intensity: Moderate Intrauterine tone measurement: 40 (Ctx 40 mm Hg peak; 23 mm amplitude) Status status: Category l Heart Rate Baseline: 150 Monitor Accelerations: Present Monitor Decelerations: Absent Monitor Variability: Minimal (Minimal to moderate) Assessment and Plan Assessment: other Plan: Comments: Patient and her family counseled regarding alternatives, risks, benefits, and potential complications associated with primary section for failure to progress presumably due to cephalopelvic disproportion and maternal intolerance of labor. With full understanding of the above, a written consent was executed, signed, and witnessed this date.
--- NOTE | 2023-05-18 18:01 | PM.PREOP ---
Pre-operative Note COVID-19 COVID-19 status: Not tested Interval Note History & Physical reviewed/Exam performed by Physician: Yes Changes to H&P: No
--- NOTE | 2023-05-18 18:42 | SUR.OPER ---
Supine on Padded OR bed, head on pillow, safety belt at thigh, arms secured on padded arm boards at <90 degrees abduction. Bump under right buttock. Legs uncrossed with pillow under knees, gel pad to heels, tape over blanket to lower legs.
[2023-05-18] MEDS: CEFAZOLIN VIAL 3 GM in SODIUM CHLORIDE 0.9% 100 ML IV (18:45)
[2023-05-18] MEDS: AZITHROMYCIN 500 MG in DEXTROSE 5% IN WATER 250 ML 250 MG IV (19:02)
[2023-05-18] MEDS: ACETAMINOPHEN IV 1,000 MG/100 ML VIAL 400 MG IV (19:38)
--- NOTE | 2023-05-18 19:51 | SUR.OPER ---
Vacuum delivery attempted x3. Baby boy born at 192. Placenta delivered at 192. APGARs 1/5. Cord blood and placenta given to OB RN.
[2023-05-18 20:24] VITALS: BP 138/83; PULSE 110; RESP 13; TEMP 37.4; O2SAT 94
[2023-05-18 20:29] VITALS: BP 136/91; PULSE 104; RESP 15; O2SAT 96
[2023-05-18 20:35] VITALS: BP 165/90; PULSE 107; RESP 11; O2SAT 99
--- NOTE | 2023-05-18 20:36 | PM.OBCS.1 ---
Operative Date/Time/Diagnoses Date of procedure: 05/18/23 Time of procedure: 18:40 Pre-op diagnosis: Intrauterine gestation, chavez, 38 weeks EGA Failure to progress in the 1st stage of labor Preeclampsia without severe features Post-op diagnosis: same Procedure & Clinicians Procedure: Primary section, low transverse cervical incision Same procedure as scheduled: Yes Indications: Jaz is a 22-year-old primigravida admitted for ripening/induction due to preeclampsia without severe features 37+ 5 weeks gestational age. She has experienced secondary arrest of labor at 5 cm, 90% effacement, and vertex not descending below -2 station. In addition the patient's epidural has only worked intermittently and maternal tolerance of labor and the pain of labor are exhausted. Surgeon: Rashid Quintanilla Click Yes if Unassisted: No Citrus Fruit Colorer: Bill Gipson Reason for Citrus Fruit Colorer: Citrus Fruit Colorer required for the safe, effective, and timely completion of this surgery. Anesthesia Type: General and Spinal Operative Notes Findings: Viable [] BW [], Apgars []/[], delivered from the [] presentation. Normal gravid anatomy. Closure Type: primary Specimen(s): cord blood Intraoperative meds administered: Ketorolac and Pitocin Applied: Catheter Estimated Blood Loss (mL): 900 Blood products transfused: none Procedure in detail: With her informed written consent, the patient was taken to the operating room and placed in the supine position for a primary section procedure, for the indication(s) above. The abdomen was prepped and draped in the usual manner for section and a pre-surgical timeout was taken per [facility] OR protocol. Spinal block anesthesia was ineffective and therefore the patient underwent rapid sequence induction of general anesthesia. Once effective anesthesia was confirmed, a 15 cm transverse Pfannenstiel incision was made in the skin and taken down through the subcutaneous tissues to the deep fascia. The deep fascia was incised transversely, the rectus abdominal eyes bluntly and sharply, and the peritoneal cavity entered without difficulty. The lower uterine segment was visualized and the position/presentation palpated. A transverse incision at or above the vesicouterine reflection was made with Metzenbaum scissors and transverse hysterotomy performed near the midline. Amniotomy revealed clear fluid. The incision was extended bilaterally with digital traction and the infant was delivered with vacuum assist from the vertex presentation. The was not vigorous and therefore cord clamping was not delayed but rather the was passed off the field for resuscitative efforts. Cord blood gases were obtained but remain pending at the time of this dictation. The placenta was delivered intact using gentle cord traction and fundal massage.The uterine cavity was then cleared of any clot/debris first with a sloppy wet lap tape followed by a dry lap tape. Ring forceps were then applied to the angles and the midline of the incised XIANG. A primary closure of the uterus was then accomplished with #1 CCGS in a running interlocking stitch followed by a 2nd layer of #1 CCGS in a running interlocking imbricating stitch. No additional sutures were required to achieve complete hemostasis of hysterotomy. Once pelvic hemostasis was assured, the bladder flap and anterior peritoneum were closed with a running 2-0 Vicryl suture and the fascia closed with #1 Vicryl in a running stitch initiated at both angles and tying separately near the midline. The subcutaneous tissues were reapproximated with 2-0 plain catgut suture using inverted interrupted stitches. The skin edges were then brought together with 4-0 Monocryl in a subcuticular closure. A LIANA suction dressing was then applied to the incision. The patient was awakened from general anesthesia and transferred to PACU for recovery and subsequent transfer to the Center for recuperation. Complications: none Festus Baby 1: Infant Gender: Male Presentation: vertex Position: Right Occiput Anterior Placental Delivery Description: Spontaneous Cord Vessel Description: 3 Vessels score (1 min): 1 score (5 min): 5 score (10 min): 8 weight: 3208 lb Post-operative Condition: stable Disposition: PACU Aftercare: routine postop
[2023-05-18] MEDS: ONDANSETRON 4 MG/2 ML INJ IV (20:38)
[2023-05-18] MEDS: OXYCODONE IR 5 MG TABLET PO (20:38)
[2023-05-18 20:39] VITALS: BP 153/98; PULSE 105; RESP 15; O2SAT 93
[2023-05-19] MEDS: OXYCODONE IR 10 MG TABLET PO (01:36)
[2023-05-19] MEDS: KETOROLAC 30 MG/ML VIAL IV ×2 (02:32→08:40)
[2023-05-19] MEDS: ACETAMINOPHEN 325 MG TABLET 650 MG PO (04:04)
[2023-05-19 05:17] LABS: Add Manual Diff / Slide Review NO; Basophils Absolute Auto 0 /uL (0-100); Basophils Percent Auto 0.2 % (0-2); Eosinophils Absolute Auto 0 /uL (0-450); Hematocrit 31.5 % (36-46); Hemoglobin 10.9 g/dL (12.0-16.0); Lymphocytes Absolute Auto 1100 /uL (1100-4500); Mean Corpuscular HGB Conc 34.6 % (30-36); Mean Corpuscular Hemoglobin 24.9 PG (26-34); Monocytes Absolute Auto 1500 /uL (0-900); Monocytes Percent Auto 6.9 % (3-14); Neutrophils Absolute Auto 19300 /uL (1500-7000); Neutrophils Percent Auto 87.9 % (50-75); Platelet Count 235 X10^3/uL (150-400); Red Blood Cell Count 4.38 X10^6/uL (4.0-5.2); Red Cell Distribution Width 15.5 % (11.6-14.8)
[2023-05-19 06:02] LABS: Alanine Aminotransferase 12 IU/L (<35); Albumin 2.6 g/dL (3.5-5.0); Alkaline Phosphatase 123 U/L (38-126); Aspartate Aminotransferase 24 IU/L (14-36); BUN Creatinine Ratio 12.7 (6-22); Bilirubin Total 0.6 mg/dL (0.2-1.3); Blood Urea Nitrogen 7 mg/dL (7-17); Calcium 8.8 mg/dL (8.4-10.2); Carbon Dioxide 20 mmol/L (22-32); Chloride 103 mmol/L (98-107); Estimated Glomerular Filt Rate > 60 mL/min (>60); Globulin 2.6 g/dL (1.7-4.1); Glucose 116 mg/dL (70-100); HEMOLYSIS < 15 (0-50); Potassium 4.4 mmol/L (3.4-5.1); Sodium 130 mmol/L (137-145); Total Protein 5.2 g/dL (6.3-8.2)
[2023-05-19 08:39] VITALS: BP 114/73; PULSE 91
[2023-05-19] MEDS: LABETALOL 100 MG TABLET PO (08:39)
[2023-05-19] MEDS: PRENATAL VIT,CALC/IRON/FOLIC 1 TABLET 1 TAB PO (08:39)
[2023-05-19] MEDS: DOCUSATE 100 MG CAPSULE PO (08:41)
--- NOTE | 2023-05-19 12:42 | P.DS_ITS ---
Discharge Providers Provider Date of admission: 05/16/23 19:25 Discharge Date: 05/19/23 Primary care physician: Sheila TORRES Provider Consults: 05/18/23 23:33 Consult to Loft Rigger Routine Comment: Discharge provider: Rashid Quintanilla MD Summary Hospital Course Date Patient Seen: 05/19/23 Time Patient Seen: 12:00 Diagnoses: Intrauterine gestation, 38+ 0 weeks, delivered by primary section Preeclampsia without severe features Failure to progress in labor GBS negative status Hospital Course: Jaz was admitted on the evening of 05/16/2023 for cervical ripening due to preeclampsia without severe features at 37+ 5 weeks gestational age. Cervical ripening was initiated with oral Cytotec which continued until the late afternoon of 05/17/2023 when a Vann balloon was placed in the cervix. The Vann balloon fell out later that evening and Pitocin augmentation was initiated. Pitocin augmentation continued overnight to 09/09/2023 and into 05/18/2023 with gradual change to 5 cm with the vertex not descending below -2 station. Due to failure to progress and maternal intolerance of labor related to a sporadically effective epidural, the decision was made to proceed with primary on the evening of 05/18/2023. At the time of , she delivered a viable male infant with Apgars of 1/5/8 and a weight of 3208 g. The was subsequently transferred to [facility] for NICU care and as a result the patient requests early discharge. She is done exceptionally well following her with prompt return of bowel and bladder function, she is ambulating independently, tolerating regular diet, and her pain is well controlled with oral pain medications. She will be discharged at this time to home in an afebrile normotensive condition after counseling regarding precautionary symptoms, limitations of activity, medications, and plans for follow-up which will be in 1 week. Medications at discharge will include resumption of all pre delivery medications including labetalol 100 mg p.o. b.i.d. and she will also use oxycodone 5 mg every 6 hours as needed for pain along with Tylenol and ibuprofen [id number]. Peripartum Data Delivery Method: Section Laceration Description: None Episiotomy description: None Procedures: Continuous lumbar epidural anesthesia x2 Spinal block anesthetic (ineffective) Rapid sequence general anesthesia Primary section (low transverse cervical) complications: none [place] 1: Gender: Male Disposition of : NICU (Infant transferred to [facility] due to respiratory issues) Status at Discharge Cognitive/behavioral status at discharge: oriented Functional status at discharge: independent ambulation Overall status at discharge: patient is progressing back to baseline Time Spent with Patient Time attestation: Total time spent providing and/or coordinating discharge services: Time spent: Less than 30 minutes Objective Labs 05/19/23 05:00 05/19/23 05:00 Labs: Laboratory Results - last 24 hr 05/19/23 05:00 WBC 22.0 H RBC 4.38 Hgb 10.9 L Hct 31.5 L MCV 72.0 L MCH 24.9 L MCHC 34.6 RDW 15.5 H Plt Count 235 Neut % (Auto) 87.9 H Lymph % (Auto) 5.0 L Mckean % (Auto) 6.9 Eos % (Auto) 0.0 L Baso % (Auto) 0.2 Neut # (Auto) 79859 H Lymph # (Auto) 1100 Mckean # (Auto) 1500 H Eos # (Auto) 0 Baso # (Auto) 0 Sodium 130 L Potassium 4.4 Chloride 103 Carbon Dioxide 20 L BUN 7 Creatinine 0.55 Estimated GFR > 60 BUN/Creatinine Ratio 12.7 Glucose 116 H Calcium 8.8 Total Bilirubin 0.6 AST 24 ALT 12 Alkaline Phosphatase 123 Total Protein 5.2 L Albumin 2.6 L Globulin 2.6 Albumin/Globulin Ratio 1.0 Exam Vital Signs (past 8 hours): - 05/19/23 08:39 Pulse Rate 91 H Blood Pressure 114/73 Oxygen Delivery Method Nasal Cannula Oxygen Flow Rate 3 Const General: cooperative and comfortable Nutritional Appearance: average body habitus Orientation: alert and oriented x3 HENMT Head: normal to inspection, atraumatic and abrasion Ears: hearing grossly normal bilaterally Face and sinus: face symmetric Eyes General: appearance normal, both eyes and all related structures Conjunctivae: conjunctivae normal Sclera: sclerae normal EOM: EOM intact bilaterally Neck Neck: normal visual inspection Resp Effort & Inspection: normal respiratory effort and able to speak in complete sentences Auscultation: clear to auscultation bilaterally Cardio Rate: regular rate Rhythm: regular rhythm Heart Sounds: S1 normal, S2 normal and no murmurs GI Inspection: normal to inspection and incision (LIANA removed and Aquacel applied) Palpation: soft, no hepatosplenomegaly and tender (Mild, diffuse postsurgical tenderness) Auscultation: normal bowel sounds External Female Exam: other (No significant bleeding noted) Extrem General: no calf tenderness Psych Appearance: grossly normal Mental Status: mental status grossly normal Speech and Movement: speech and movement normal Mood: congruent mood Affect: normal affect Attitude: cooperative Thought Process: normal Thought Content: normal Judgment: judgment good Discharge Plan Discharge Plan Patient Disposition: Home Provider Discharge Comment: Please review the written instructions you received when you were discharged from the hospital. Your follow-up appointment will be scheduled for 1 week after your and I look forward to seeing you then. If however in the meanwhile you have any issues, concerns, or questions, please contact me either through the office phone at [phone], or via the patient portal. Discharge orders & Medications Prescriptions: New oxycodone 5 mg tablet 5 mg PO Q6H PRN (Reason: pain) Qty: 20 0RF Continued ondansetron 4 mg tablet,disintegrating 4 mg PO Q6H PRN (Reason: nausea and vomiting) Qty: 20 0RF (DME) breast pump Device See Rx Instructions .ROUTE .MEDSUPPLY Qty: 1 0RF Rx Instructions: As directed labetalol 100 mg tablet 100 mg PO BID Qty: 60 0RF Slow Fe 137 mg (45 mg iron) tablet extended release PO vit-ferrous sulfat-FA 27 mg iron- 0.8 mg tablet PO metoclopramide HCl [Reglan] 10 mg tablet 10 mg PO Q6H PRN (Reason: nausea and vomiting) Qty: 20 0RF [id number] [Fioricet] 50-300-40 mg capsule 1 cap PO TID PRN (Reason: pain) Qty: 10 0RF Follow up/Referrals: Provider,Sheila TORRES [Primary Care Provider] - Rashid Quintanilla MD [Physician] - (- Please follow-up to check c/s incision on 05/25 @ [id number]. - 6 week follow-up on 06/29 @ 7668) Discharge Health Status Multidrug resistant organism: No MDRO Diet/Activity/Treatments Diet: Diet as Tolerated Activity: As tolerated Other treatments: Swfb-grx-ckzkwws Tylenol and/or ibuprofen may be used for additional pain relief. Skin/Wound/Dressing Care Report to your healthcare provider any signs of infection, such as:: chills, fever, increased pain, unusual drainage and unusual redness Dressing: Dressing will be removed in the office at the time of your one-week postop visit Visit Report/Discharge Packet Instructions: Depression, DI for , DI for and Nipple Soreness, DI for Prescription Opioid Use, Taking Your Baby Home: Caring for Your , Caring for Your [place]: When to Call the Doctor Discharge Data Primary Care Provider: ProviderSheila
== END 2023-05-19 12:45 | disposition home or self-care (01) | DRG 788 ==
PROVIDERS: Admitting Provider Obstetrics & Gynecology; Referring Provider Obstetrics & Gynecology; Visit Provider Obstetrics & Gynecology
PROC: 10D00Z1 Extraction of Products of Conception, Low, Open Approach (ICD-10-PCS; CPT 59514; principal; 2023-05-18 18:45)
DX: O14.04 Mild to moderate pre-eclampsia, complicating childbirth (principal); O76 Abnormality in fetal heart rate and rhythm complicating labor and delivery; O61.0 Failed medical induction of labor; O75.81 Maternal exhaustion complicating labor and delivery; O62.1 Secondary uterine inertia; Z37.0 Single live birth; Z3A.37 37 weeks gestation of pregnancy
CPT/HCPCS: 36415; 59025; 59050; 59200; 59510; 59514; 76811; 80053; 82570; 84156; 84550; 85025; 86850; 86900; 86901; G0379; J0136; J0171; J0690; J1100; J1885; J2250; J2274; J2405; J2590; J2704; J3010

== ENCOUNTER 2023-10-28 13:47 | Emergency (ER) | payer OTHER, SELFPAY ==
[2023-10-28] VITALS (12 sets, daily range): BP systolic 103–127; BP diastolic 60–81; PULSE 61–88; RESP 16; TEMP 36.6; O2SAT 96–98; BMI 42.9
[2023-10-28 14:26] LABS: Add Manual Diff / Slide Review NO; Basophils Absolute Auto 100 /uL (0-100); Basophils Percent Auto 0.6 % (0-2); Eosinophils Absolute Auto 0 /uL (0-450); Eosinophils Percent Auto 0.3 % (2-4); Hematocrit 37.9 % (36-46); Lymphocytes Absolute Auto 1600 /uL (1100-4500); Lymphocytes Percent Auto 18.5 % (25-40); Mean Corpuscular HGB Conc 34.3 % (30-36); Mean Corpuscular Hemoglobin 24.1 PG (26-34); Mean Corpuscular Volume 70.5 fL (80-100); Monocytes Absolute Auto 600 /uL (0-900); Monocytes Percent Auto 7.1 % (3-14); Neutrophils Absolute Auto 6400 /uL (1500-7000); Neutrophils Percent Auto 73.5 % (50-75); Platelet Count 324 X10^3/uL (150-400); Red Blood Cell Count 5.38 X10^6/uL (4.0-5.2); Red Cell Distribution Width 15.4 % (11.6-14.8); White Blood Cell Count 8.7 X10^3/uL (4.5-11.0)
[2023-10-28] MEDS: SODIUM CHLORIDE 0.9% 1,000 ML 1000 ML IV (14:29)
[2023-10-28] MEDS: ONDANSETRON 4 MG/2 ML INJ IV (14:29)
[2023-10-28 14:41] LABS: Alanine Aminotransferase 135 IU/L (<35); Albumin 4.6 g/dL (3.5-5.0); Albumin Globulin Ratio 1.6 (1.0-2.8); Alkaline Phosphatase 195 U/L (38-126); Aspartate Aminotransferase 193 IU/L (14-36); BUN Creatinine Ratio 20.3 (6-22); Bilirubin Total 1.3 mg/dL (0.2-1.3); Blood Urea Nitrogen 15 mg/dL (7-17); Calcium 10.2 mg/dL (8.4-10.2); Carbon Dioxide 26 mmol/L (22-32); Chloride 106 mmol/L (98-107); Estimated Glomerular Filt Rate > 60 mL/min (>60); Globulin 2.9 g/dL (1.7-4.1); Glucose 110 mg/dL (70-100); HEMOLYSIS < 15 (0-50); Lipase 71 U/L (23-300); Potassium 4.1 mmol/L (3.4-5.1); Sodium 140 mmol/L (137-145); Total Protein 7.5 g/dL (6.3-8.2)
--- NOTE | 2023-10-28 14:47 | ED.GENADULT ---
HPI - General Adult General Chief complaint: Abdominal Pain Stated complaint: vomiting, chills/fever Time Seen by Provider: 10/28/23 14:19 Source: patient Mode of arrival: Ambulatory History of Present Illness HPI narrative: Patient is a 23-year-old female who is here for evaluation approximate 24 hours of vomiting and left-sided abdominal pain and chills and fever. No urinary symptoms. Has had a but no other abdominal surgeries. Did have a bowel movement since the onset of symptoms. Stated that it was not diarrhea. No vaginal bleeding. Is still somewhat nauseous. Related Data Home Medications Medication Instructions Recorded Confirmed vitamin-ferrous sulfate tab PO 10/12/22 06/30/23 27 mg iron-folic acid 0.8 mg tablet ferrous sulfate 137 mg (45 mg mg PO 03/10/23 06/30/23 iron) tablet,extended release (Slow Fe) Previous Rx's Medication Instructions Recorded ondansetron 4 mg disintegrating 4 mg PO Q6H PRN nausea and 10/27/22 tablet vomiting #20 tabs metoclopramide HCl 10 mg tablet 10 mg PO Q6H PRN nausea and 11/04/22 (Reglan) vomiting #20 tabs nuuqioytmu-omzawikebtxcw-[id number] 1 cap PO TID PRN pain #10 caps 12/31/22 50 mg-300 mg-40 mg capsule (Fioricet) breast pump #1 ea 02/10/23 labetalol 100 mg tablet 100 mg PO BID #60 tabs 05/12/23 oxycodone 5 mg tablet 5 mg PO Q6H PRN pain #20 tabs 05/19/23 Allergies Allergy/AdvReac Type Severity Reaction Status Date / Time oxybutynin Allergy Mild Rash Verified 06/30/23 11:26 Review of Systems Review of Systems ROS Unobtainable: All systems reviewed & are unremarkable except as noted in HPI and below Patient History Medical History Migraine without aura Recurrent UTI ADHD Surgical History [place] teeth extracted Family History Grandfather Heart disease Hypertension Liver failure Grandmother Cancer Heart disease Hypertension Obesity Grandfather Melanoma Grandmother No problems noted. 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 ) current occupational exposures/hazards: No special dot needs: No travel history: recent (domestic only) seatbelt use: always water heater temp set < 120 deg: Yes working smoke detector in home: Yes fire extinguisher in home: Yes carbon monox detector in home: Yes firearms in home: No do you feel safe at home: Yes Smoking Status: Never smoker second hand exposure: No alcohol intake: former (rarely when not ) substance use type: does not use during the past year weight has: increased > 10 lbs well-balanced diet: daily or most days daily servings fruits/ve or more times/day caffeine: No Type(s) of exercise: walking and weight lifting frequency: 3-4 times per week Smoking Status: Never smoker alcohol intake frequency: holidays/special occasions only Substance Use Type: does not use Exam Initial Vital Signs Initial Vital Signs: Vital Signs Temperature 97.8 F 10/28/23 14:01 Pulse Rate 88 10/28/23 14:01 Respiratory Rate 16 10/28/23 14:01 Blood Pressure 127/81 10/28/23 14:01 Pulse Oximetry 98 10/28/23 14:01 Oxygen Delivery Method Room Air 10/28/23 14:01 Const General: cooperative, comfortable and No ill appearing HENNE Head: normal to inspection and normocephalic Resp Effort & Inspection: normal respiratory effort Auscultation: clear to auscultation bilaterally Cardio Rate: regular rate Rhythm: regular rhythm GI Inspection: normal to inspection and non-distended Palpation: soft, No firm, No guarding and tender Back/Spine/Pelvis Back: CVA tenderness left Neuro General: patient alert and patient awake Course Orders Ordered: ED Orders 10/28/23 14:17 Complete Blood Count AUTO DIFF Stat Comprehensive Metabolic Panel Stat Lipase Stat Monotest Stat 10/28/23 14:32 Covid-19 + FLU A/B + RSV - PCR Stat 10/28/23 14:48 CT abdomen pelvis w con Stat Ondansetron HCl (Ondansetron 4 Mg/2 Ml Inj) 4 mg IV NOW PRN PRN Reason: Nausea And Vomiting Ondansetron HCl (Ondansetron 4 Mg Odt) 4 mg SL NOW PRN PRN Reason: Nausea And Vomiting Discontinued Medications Sodium Chloride (Normal Saline 0.9%) 1,000 mls @ 1,000 mls/hr IV BOLUS ONE Stop: 10/28/23 15:18 Last Infusion: 10/28/23 15:50 Dose: Infused Documented By: Admin: 10/28/23 14:29 Dose: 1,000 mls/hr Documented By: FERMÍN Morphine Sulfate (Morphine 4 Mg/Ml Inj) 4 mg IV NOW ONE Stop: 10/28/23 14:49 Last Admin: 10/28/23 15:06 Dose: 4 mg Documented By: FERMÍN Ondansetron HCl (Ondansetron 4 Mg/2 Ml Inj) 4 mg IV NOW ONE Stop: 10/28/23 14:20 Last Admin: 10/28/23 14:29 Dose: 4 mg Documented By: FERMÍN Vital Signs Vital signs: Vital Signs - 8 hr 10/28/23 14:01 10/28/23 14:18 10/28/23 14:19 Temperature 97.8 F Pulse Rate 88 85 85 Respiratory Rate 16 Blood Pressure 127/81 Pulse Oximetry 98 98 97 Oxygen Delivery Method Room Air 10/28/23 14:19 10/28/23 14:30 10/28/23 14:30 Temperature Pulse Rate 85 Respiratory Rate Blood Pressure 117/71 116/78 Pulse Oximetry 97 Oxygen Delivery Method 10/28/23 15:09 10/28/23 15:10 10/28/23 15:10 Temperature Pulse Rate 74 77 Respiratory Rate Blood Pressure 110/72 Pulse Oximetry 97 96 Oxygen Delivery Method 10/28/23 15:30 10/28/23 15:30 10/28/23 17:53 Temperature Pulse Rate 72 61 Respiratory Rate Blood Pressure 115/71 Pulse Oximetry 98 98 Oxygen Delivery Method 10/28/23 17:54 10/28/23 17:54 10/28/23 18:00 Temperature Pulse Rate 67 77 Respiratory Rate Blood Pressure 104/60 Pulse Oximetry 96 97 Oxygen Delivery Method 10/28/23 18:01 10/28/23 18:01 Temperature Pulse Rate 73 Respiratory Rate Blood Pressure 110/64 Pulse Oximetry 98 Oxygen Delivery Method Medical Decision Making Lab Data Lab results reviewed: Yes I reviewed the patient's lab results. 10/28/23 14:17 10/28/23 14:17 Labs: Lab Results 10/28/23 10/28/23 Range/Units 14:17 14:32 WBC 8.7 (4.5-11.0) X10^3/uL RBC 5.38 H (4.0-5.2) X10^6/uL Hgb 13.0 (12.0-16.0) g/dL Hct 37.9 (36-46) % MCV 70.5 L (80-100) fL MCH 24.1 L (26-34) PG MCHC 34.3 (30-36) % RDW 15.4 H (11.6-14.8) % Plt Count 324 (150-400) X10^3/uL Neut % (Auto) 73.5 (50-75) % Lymph % (Auto) 18.5 L (25-40) % Kimble % (Auto) 7.1 (3-14) % Eos % (Auto) 0.3 L (2-4) % Baso % (Auto) 0.6 (0-2) % Neut # (Auto) 6400 (1788-3660) /uL Lymph # (Auto) 1600 (6021-7623) /uL Kimble # (Auto) 600 (0-900) /uL Eos # (Auto) 0 (0-450) /uL Baso # (Auto) 100 (0-100) /uL Sodium 140 (137-145) mmol/L Potassium 4.1 (3.4-5.1) mmol/L Chloride 106 (98-107) mmol/L Carbon Dioxide 26 (22-32) mmol/L BUN 15 (7-17) mg/dL Creatinine 0.74 (0.52-1.04) mg/dL Estimated GFR > 60 (>60) mL/min BUN/Creatinine Ratio 20.3 (6-22) Glucose 110 H (70-100) mg/dL Calcium 10.2 (8.4-10.2) mg/dL Total Bilirubin 1.3 (0.2-1.3) mg/dL AST 193 H (14-36) IU/L ALT 135 H (<35) IU/L Alkaline Phosphatase 195 H (38-126) U/L Total Protein 7.5 (6.3-8.2) g/dL Albumin 4.6 (3.5-5.0) g/dL Globulin 2.9 (1.7-4.1) g/dL Albumin/Globulin Ratio 1.6 (1.0-2.8) Lipase 71 (23-300) U/L SARS-CoV-2 (PCR) Negative (Negative) Monoscreen Negative (Negative) Influenza A (RT-PCR) Flu a negative (NEGATIVE) Influenza B (RT-PCR) Flu b negative (NEGATIVE) RSV (PCR) Negative (Negative) Point of Care Testing Test Results Negative Urine Dip Bedside Urine Glucose Negative Bedside Urine Bilirubin - Negative Bedside Urine Ketone - Negative Urine Specific [place] 1.020 Bedside Urine Occult Blood - Negative Bedside Urine pH 6.0 Bedside Urine Protein - Negative Bedside Urine Urobilinogen - Negative Bedside Urine Nitrite - Negative Bedside Urine Leukocytes - Negative Esterase Point of care testing: Point of Care Testing Test Results Negative Urine Dip Bedside Urine Glucose Negative Bedside Urine Bilirubin - Negative Bedside Urine Ketone - Negative Urine Specific [place] 1.020 Bedside Urine Occult Blood - Negative Bedside Urine pH 6.0 Bedside Urine Protein - Negative Bedside Urine Urobilinogen - Negative Bedside Urine Nitrite - Negative Bedside Urine Leukocytes - Negative Esterase Imaging Data CT scan - abdomen/pelvis: Radiologist's Impression: PROCEDURE: CT ABDOMEN PELVIS W CON INDICATIONS: LLQ abd pain TECHNIQUE: After the administration of intravenous contrast, axial sections acquired from the lung bases to the pubic symphysis. Coronal and sagittal reformats were performed. For radiation dose reduction, the following was used: automated exposure control, adjustment of mA and/or kV according to patient size. COMPARISON: [facility], , MR ABDOMEN PELVIS WO CON, 01/26/2023, 15:56. FINDINGS: Image quality: Diagnostic Lower chest: Lung bases are unremarkable. Mildly patulous distal esophagus, nonspecific. Heart size is at the upper limit of normal Liver: Unremarkable Gallbladder and biliary system: Unremarkable gallbladder. Mildly prominent biliary system, CBD measures 6 millimeters, which is the upper limit of normal Pancreas: Nondilated Spleen: Splenomegaly at 16 centimeters AP dimension Adrenals: No discrete nodules Kidneys: No solid mass or hydronephrosis Vessels and lymph nodes: The main portal vein is patent. No abdominal aortic aneurysm or pathologic lymph nodes by size criteria. Bowel and peritoneum: Mildly distended stomach without small bowel obstruction. No acute inflammatory changes seen in the left lower quadrant. There is a moderate rectal stool ball. No pathologic ascites or abscess. Nondilated appendix Few colonic diverticula are present. Body wall: Unremarkable Pelvis: Bladder is unremarkable. Reproductive organs are unremarkable on limited CT evaluation Bones: No acute or suspicious osseous finding. IMPRESSION: No acute abdominal pelvic abnormality. Incidentally noted splenomegaly. Mildly distended stomach without bowel obstruction. Moderate rectal stool ball. Other findings above. MDM Narrative Medical decision making narrative: She does have a relatively benign abdominal exam. Urinalysis is unremarkable. Her discomfort is in the left upper quadrant. She has an elevation in her liver function tests but has been told that these have been elevated in the past. Normal bilirubin. She was negative Ramírez's sign. She does have an appointment with the GI doctors for other ?stomach? issues later this month and I recommended that she talk with her GI doctors about this. She does have splenomegaly noted on the CT scan. No signs of infarction. She has been told that she had an enlarged spleen when she was younger. Has never had a workup of this. She was told that it could ?come and go? her mono test is negative. According to Radiology there was no other signs of lymphoma to include abnormal size lymph nodes noted on the scan. I advised that she talk with her primary doctor about this as well. We did discuss that this potentially could be the cause of her discomfort. She was given return precautions and follow-up instructions. She expressed understanding and agreement. Discharge Plan Departure Patient Disposition: Home Clinical Impression: Abdominal pain, Transaminitis, Splenomegaly Instructions: DI for Abdominal Pain-Adult Activity Restrictions/Additional Instructions: Continue to take all of your medications as directed. Recommend that you keep your scheduled appointment with the GI doctors at later this month to discuss the elevation in your liver function tests (transaminitis) and also urine large spleen (splenomegaly). Return to the emergency department for new or worsening symptoms. Prescriptions: No Action ondansetron 4 mg tablet,disintegrating 4 mg PO Q6H PRN (Reason: nausea and vomiting) Qty: 20 0RF (DME) breast pump Device See Rx Instructions .ROUTE .MEDSUPPLY Qty: 1 0RF Rx Instructions: As directed labetalol 100 mg tablet 100 mg PO BID Qty: 60 0RF Slow Fe 137 mg (45 mg iron) tablet extended release PO vit-ferrous sulfat-FA 27 mg iron- 0.8 mg tablet PO metoclopramide HCl [Reglan] 10 mg tablet 10 mg PO Q6H PRN (Reason: nausea and vomiting) Qty: 20 0RF oxycodone 5 mg tablet 5 mg PO Q6H PRN (Reason: pain) Qty: 20 0RF xfbrdieafa-iitbbdweqpftw-arzk [Fioricet] 50-300-40 mg capsule 1 cap PO TID PRN (Reason: pain) Qty: 10 0RF Referrals: Provider,Sheila TORRES [Primary Care Provider] - Stand Alone Forms: Patient Portal/API
[2023-10-28] MEDS: MORPHINE 4 MG/ML INJ IV (15:06)
[2023-10-28 15:19] LABS: COVID-19 CEPHEID 4-PLEX PCR Negative (Negative); Influenza A - CEPHEID Flu A NEGATIVE (NEGATIVE); Influenza B - CEPHEID Flu B NEGATIVE (NEGATIVE); Respiratory Syncytial Virus Negative (Negative)
[2023-10-28 17:46] LABS: Monotest Negative (Negative)
== END 2023-10-28 18:48 | disposition home or self-care (01) ==
PROVIDERS: Emergency Provider Emergency Medicine
DX: R10.32 Left lower quadrant pain (principal); R74.01 Elevation of levels of liver transaminase levels; R16.1 Splenomegaly, not elsewhere classified; R11.2 Nausea with vomiting, unspecified; Z11.52 Encounter for screening for COVID-19
CPT/HCPCS: 0241U; 36415; 74177; 80053; 81003; 81025; 83690; 85025; 86318; 96361; 96374; 96375; 99284; J2270; J2405; Q9967